=== PATIENT | male | born 1935 | race Caucasian/White ===

== ENCOUNTER → 2019-04-02 10:24 | Outpatient (BNVA) | payer MEDICARE, BC, SELFPAY | PROVIDERS: Family Provider Family Medicine; PCP Family Medicine; Visit Provider Internal Medicine Cardiovascular Disease | DX: I48.91 Unspecified atrial fibrillation (principal) | CPT/HCPCS: 85610 ==

== ENCOUNTER 2019-04-06 11:41 | Inpatient (IN) | payer MEDICARE, BC, SELFPAY ==
--- NOTE | 2019-04-06 11:42 | ED_ITS ---
Entered by Jose Maria Kenyon, acting as scribe for Jonnie Reilly DO HPI - Altered Mental Status General: Chief Complaint: Altered Mental Status Stated Complaint: CONFUSION Time Seen by Provider: 04/06/19 11:48 History of Present Illness: HPI narrative: 83 yo male presents with alerted mental status. Pt states that he has had a cough. Pt answers questions, but the answers are short. Pt doesn't know who his PCP is. He denies any chest pain he does have some mild shortness of breath cough. is with him states his mental status is always been a little bit compromise but is markedly worse over the last 3 to 4 days. She denies fever sweats or chills reported to her by him there is been no recent change in medications no dysuria urgency frequency no hematochezia melena hematemesis coffee-ground emesis. MD complaint: altered mental status Associated symptoms: Deny auditory hallucinations, visual hallucinations, depression, homicidal ideation or suicidal ideation Review of Systems Const: Reports: malaise; Denies: fever, chills, body aches, fatigue or night sweats Eyes: Denies: change in vision or blurry vision ENMT: Denies: throat pain, oral sores/lesions, dental pain, nasal discharge or nasal congestion Card: Denies: chest pain, palpitations, irregular heart rhythm, edema, syncope, shortness of breath on exertion, shortness of breath when lying down or leg pain with exertion Resp: Denies: shortness of breath, productive cough, non-productive cough or wheezing GI: Denies: abdominal pain, nausea, vomiting, vomiting blood, coffee grounds i n vomit, difficulty swallowing, heartburn/indigestion, diarrhea, constipation, cramping, blood in stool or black tarry stool : Denies: flank pain, difficulty urinating, painful urination, urinary frequency, urinary urgency, urinary incontinence or blood in urine Musc: Denies: neck pain, back pain, extremity pain, extremity swelling, joint pain or joint swelling Skin/Breast: Denies: rash, itching or redness Neuro: Reports: confusion; Denies: headache, numbness in extremities, weakness in extremities, changes in sensation, lack of coordination, difficulty walking, frequent falls, dizziness or vertigo Psych: Reports: loss of interest; Denies: anxiety, depression, visual hallucinations, auditory hallucinations, suicidal ideation or homicidal ideation Endo: Denies: excessive urination, excessive thirst, tired all the time or cold intolerance Daquan/Lymph: Denies: easy bruising, easy bleeding, petechiae, enlarged lymph nodes or tender lymph nodes PFSH ED PFSH: Statuses (acute, chronic, etc) shown below reflect problem list status as previously entered and may not be historically accurate Medical History Anemia (Acute) Atrial fibrillation (Acute) Chronic kidney disease (Acute) COPD (chronic obstructive pulmonary disease) (Acute) Coronary artery disease (Acute) Dementia (Acute) Diabetes mellitus type 2, insulin dependent (Acute) H/O coronary angiogram (Acute) Hyperlipidemia (Acute) Hypertension (Acute) Sick sinus syndrome (Acute) Surgical History H/O hemorrhoidectomy (Acute) History of permanent cardiac pacemaker placement (Acute) History of repair of hip fracture (Acute) Family History Mother CAD (coronary artery disease) Father CAD (coronary artery disease) Social History Smoking and tobacco status: former smoker Alcohol intake: never Substance/Drug Use: never Household members: spouse Physical Exam Const: COMMON NORMALS: average body habitus and alert EXAM LIMITATIONS: altered mental status GENERAL APPEARANCE: cooperative, comfortable and well developed NUTRITIONAL APPEARANCE: obese ORIENTATION/CONSCIOUSNESS: Yes awake; not oriented to person and not oriented to place HENMT: COMMON NORMALS: normocephalic, head/scalp atraumatic, EAC's normal, TM's normal bilaterally, external nose normal, moist oral mucous membranes and oropharynx normal HEAD & SCALP: normocephalic and atraumatic NOSE: external nose normal EXTERNAL AUDITORY CANAL: EAC's normal TYMPANIC MEMBRANE: TM's normal bilaterally MOUTH: oral and palatal mucosa normal, lip normal and tongue normal THROAT: posterior oropharynx normal and tonsils normal Eye: COMMON NORMALS: PERRL, EOMs intact bilaterally, conjunctivae normal and no scleral icterus CONJUNCTIVA: Yes conjunctivae normal PUPIL: Yes PERRL Neck/C-Spine: COMMON NORMALS: full ROM, no lymphadenopathy, supple, no meningeal signs and thyroid normal THYROID: thyroid normal and asymmetrical Lymph: LYMPHATIC: no lymphadenopathy noted Resp: COMMON NORMALS: no retractions and no use of accessory muscles AUSCULTATION: rhonchi throughout and wheezes throughout Cardio: COMMON NORMALS: regular rate and regular rhythm RATE: regular rate RHYTHM: regular rhythm HEART SOUNDS: no murmurs GI: COMMON NORMALS: normal to inspection, nondistended, normoactive bowel sounds, soft to palpation and no hepatosplenomegaly PALPATION: Yes soft and Yes no hepatosplenomegaly : COMMON NORMALS: Yes no CVA tenderness BLADDER/KIDNEY EXAM: Yes no CVA tenderness Back/Pelvis: COMMON NORMALS: no CVA tenderness LUMBAR SPINE/LOWER BACK: Yes normal to inspection Extremity: COMMON NORMALS: no clubbing, cyanosis or edema, no calf tenderness and no pedal edema Neuro: SENSORIUM/ORIENTATION: Yes alert, No oriented to person and No oriented to place MENINGEAL SIGNS: Yes no meningeal signs Skin: COMMON NORMALS: no rashes or lesions noted and skin turgor normal GENERAL SKIN EXAM: no rashes or lesions noted and turgor normal Course ED course: Discussed with Dr. Mcintyre she will admit the patient hypoxia acute on chronic renal injury. Mild dehydration COPD exacerbation altered mental status and anemia Vital Signs: Vital signs: Vital Signs Temperature 97.7 F 04/07/19 11:24 Pulse Rate 64 04/07/19 11:24 Respiratory Rate 18 04/07/19 11:24 Blood Pressure 119/64 04/07/19 11:24 Pulse Oximetry 100 04/07/19 11:24 MDM - Altered Mental Status Lab Data: Labs: Lab Results 04/06/19 04/06/19 04/06/19 Range/Units 11:58 11:58 11:58 WBC 7.6 (4.0-10.0) 10^3/ uL RBC 3.62 L (4.1-5.3) 10^6/u L Hgb 10.6 L (11.7-16.6) g/dL Hct 33.5 L (42.0-52.0) % MCV 92.5 (80-94) fL MCH 29.3 (28.0-34.0) pg MCHC 31.6 (30.0-36.0) g/dL RDW 14.0 (12.1-15.1) % Plt Count 159 (130-400) 10^3/c mm MPV 9.7 (7.4-10.4) fL Neut % (Auto) 78.2 % Lymph % (Auto) 11.2 % Sullivan % (Auto) 8.1 % Eos % (Auto) 1.4 % Baso % (Auto) 0.4 % Neut # (Auto) 6.0 (1.8-7.7) 10^3/u L Lymph # (Auto) 0.9 (0.8-4.8) 10^3/u L Sullivan # (Auto) 0.6 (0.2-0.9) 10^3/u L Eos # (Auto) 0.1 (0.0-0.8) 10^3/u L Baso # (Auto) 0.0 (0.0-0.1) 10^3/u L Nucleated RBC % (a uto) 0 % Nucleated RBCs # 0.0 /100WBC PT (10.5-13.3) SECO NDS INR (0.8-1.2) Specimen Type Sample Site ABG pH (7.35-7.45) ABG pCO2 (35-45) mmHg ABG pO2 (80.0-100.0) mmH g ABG HCO3 (22-26) mmol/L ABG Base Excess (-2.0-2.0) mmol/ L Eduardo Test Hematocrit (42-52) % Director Of Medicare ID Sodium 138 (136-145) mmol/L Potassium 4.7 (3.5-5.1) mmol/L Chloride 95 L (98-107) mmol/L Carbon Dioxide 32 H (22-29) mmol/L Anion Gap 15.7 (5-19) BUN 31 H (8-23) mg/dL Creatinine 2.0 H (0.7-1.2) mg/dL Glucose 173 H (74-106) mg/dL Estimat Average Gl ucose 166 Hemoglobin A1c 7.4 H (4.0-6.0) % Lactate (0.5-2.2) mmol/L Calcium 9.8 (8.8-10.2) mg/Dl Magnesium 2.3 (1.7-2.3) mg/dL Total Bilirubin 1.3 H (0.15-1.2) mg/dL AST 26 (0-40) U/L ALT 23 (0-41) U/L Alkaline Phosphata se 69 (40-130) IU/L Ammonia (16-60) umol/L Creatine Kinase 88 (39-308) U/L Troponin T Baselin e (0-15) ng/mL NT-Pro-B Natriuret Pep 4197 H (0-450) pg/mL Total Protein 7.4 (6.6-8.7) g/dL Albumin 4.0 (3.5-5.2) g/dL Globulin 3.4 (1.3-4.6) g/dL Lipase 11 L (13-60) U/L TSH 1.49 (0.27-4.20) uIU/ mL Digoxin (0.6-1.2) ng/mL Salicylates < 0.3 L (3-10) mg/dL Urine Opiates Scre en (Negative) ng/mL Acetaminophen < 5.0 L (10-30) ug/mL Ur Barbiturates Sc reen (Negative) ng/mL Ur Phencyclidine S crn (Negative) ng/mL Ur Amphetamines Sc reen (Negative) ng/mL U Benzodiazepines Scrn (Negative) ng/mL Urine Cocaine Scre en (Negative) ng/mL U Marijuana (THC) Screen (Negative) ng/mL 04/06/19 04/06/19 04/06/19 Range/Units 13:00 13:07 13:51 WBC (4.0-10.0) 10^3/ uL RBC (4.1-5.3) 10^6/u L Hgb (11.7-16.6) g/dL Hct (42.0-52.0) % MCV (80-94) fL MCH (28.0-34.0) pg MCHC (30.0-36.0) g/dL RDW (12.1-15.1) % Plt Count (130-400) 10^3/c mm MPV (7.4-10.4) fL Neut % (Auto) % Lymph % (Auto) % Sullivan % (Auto) % Eos % (Auto) % Baso % (Auto) % Neut # (Auto) (1.8-7.7) 10^3/u L Lymph # (Auto) (0.8-4.8) 10^3/u L Sullivan # (Auto) (0.2-0.9) 10^3/u L Eos # (Auto) (0.0-0.8) 10^3/u L Baso # (Auto) (0.0-0.1) 10^3/u L Nucleated RBC % (a uto) % Nucleated RBCs # /100WBC PT (10.5-13.3) SECO NDS INR (0.8-1.2) Specimen Type Arterial Sample Site Radial, left ABG pH 7.45 (7.35-7.45) ABG pCO2 45.4 H (35-45) mmHg ABG pO2 81.6 (80.0-100.0) mmH g ABG HCO3 31.6 H (22-26) mmol/L ABG Base Excess 6.7 H (-2.0-2.0) mmol/ L Eduardo Test Pos Hematocrit 32.3 L (42-52) % Director Of Medicare ID ed Sodium (136-145) mmol/L Potassium (3.5-5.1) mmol/L Chloride (98-107) mmol/L Carbon Dioxide (22-29) mmol/L Anion Gap (5-19) BUN (8-23) mg/dL Creatinine (0.7-1.2) mg/dL Glucose (74-106) mg/dL Estimat Average Gl ucose Hemoglobin A1c (4.0-6.0) % Lactate 1.6 (0.5-2.2) mmol/L Calcium (8.8-10.2) mg/Dl Magnesium (1.7-2.3) mg/dL Total Bilirubin (0.15-1.2) mg/dL AST (0-40) U/L ALT (0-41) U/L Alkaline Phosphata se (40-130) IU/L Ammonia (16-60) umol/L Creatine Kinase (39-308) U/L Troponin T Baselin e (0-15) ng/mL NT-Pro-B Natriuret Pep (0-450) pg/mL Total Protein (6.6-8.7) g/dL Albumin (3.5-5.2) g/dL Globulin (1.3-4.6) g/dL Lipase (13-60) U/L TSH (0.27-4.20) uIU/ mL Digoxin (0.6-1.2) ng/mL Salicylates (3-10) mg/dL Urine Opiates Scre en Negative (Negative) ng/mL Acetaminophen (10-30) ug/mL Ur Barbiturates Sc reen Negative (Negative) ng/mL Ur Phencyclidine S crn Negative (Negative) ng/mL Ur Amphetamines Sc reen Negative (Negative) ng/mL U Benzodiazepines Scrn Negative (Negative) ng/mL Urine Cocaine Scre en Negative (Negative) ng/mL U Marijuana (THC) Screen Negative (Negative) ng/mL 04/06/19 04/06/19 04/06/19 Range/Units 14:15 16:30 16:30 WBC (4.0-10.0) 10^3/ uL RBC (4.1-5.3) 10^6/u L Hgb (11.7-16.6) g/dL Hct (42.0-52.0) % MCV (80-94) fL MCH (28.0-34.0) pg MCHC (30.0-36.0) g/dL RDW (12.1-15.1) % Plt Count (130-400) 10^3/c mm MPV (7.4-10.4) fL Neut % (Auto) % Lymph % (Auto) % Sullivan % (Auto) % Eos % (Auto) % Baso % (Auto) % Neut # (Auto) (1.8-7.7) 10^3/u L Lymph # (Auto) (0.8-4.8) 10^3/u L Sullivan # (Auto) (0.2-0.9) 10^3/u L Eos # (Auto) (0.0-0.8) 10^3/u L Baso # (Auto) (0.0-0.1) 10^3/u L Nucleated RBC % (a uto) % Nucleated RBCs # /100WBC PT 20.10 H (10.5-13.3) SECO NDS INR 1.65 H (0.8-1.2) Specimen Type Sample Site ABG pH (7.35-7.45) ABG pCO2 (35-45) mmHg ABG pO2 (80.0-100.0) mmH g ABG HCO3 (22-26) mmol/L ABG Base Excess (-2.0-2.0) mmol/ L Eduardo Test Hematocrit (42-52) % Director Of Medicare ID Sodium (136-145) mmol/L Potassium (3.5-5.1) mmol/L Chloride (98-107) mmol/L Carbon Dioxide (22-29) mmol/L Anion Gap (5-19) BUN (8-23) mg/dL Creatinine (0.7-1.2) mg/dL Glucose (74-106) mg/dL Estimat Average Gl ucose Hemoglobin A1c (4.0-6.0) % Lactate (0.5-2.2) mmol/L Calcium (8.8-10.2) mg/Dl Magnesium (1.7-2.3) mg/dL Total Bilirubin (0.15-1.2) mg/dL AST (0-40) U/L ALT (0-41) U/L Alkaline Phosphata se (40-130) IU/L Ammonia 39 (16-60) umol/L Creatine Kinase (39-308) U/L Troponin T Baselin e (0-15) ng/mL NT-Pro-B Natriuret Pep (0-450) pg/mL Total Protein (6.6-8.7) g/dL Albumin (3.5-5.2) g/dL Globulin (1.3-4.6) g/dL Lipase (13-60) U/L TSH (0.27-4.20) uIU/ mL Digoxin 1.7 H (0.6-1.2) ng/mL Salicylates (3-10) mg/dL Urine Opiates Scre en (Negative) ng/mL Acetaminophen (10-30) ug/mL Ur Barbiturates Sc reen (Negative) ng/mL Ur Phencyclidine S crn (Negative) ng/mL Ur Amphetamines Sc reen (Negative) ng/mL U Benzodiazepines Scrn (Negative) ng/mL Urine Cocaine Scre en (Negative) ng/mL U Marijuana (THC) Screen (Negative) ng/mL 04/06/19 Range/Units 16:30 WBC (4.0-10.0) 10^3/ uL RBC (4.1-5.3) 10^6/u L Hgb (11.7-16.6) g/dL Hct (42.0-52.0) % MCV (80-94) fL MCH (28.0-34.0) pg MCHC (30.0-36.0) g/dL RDW (12.1-15.1) % Plt Count (130-400) 10^3/c mm MPV (7.4-10.4) fL Neut % (Auto) % Lymph % (Auto) % Sullivan % (Auto) % Eos % (Auto) % Baso % (Auto) % Neut # (Auto) (1.8-7.7) 10^3/u L Lymph # (Auto) (0.8-4.8) 10^3/u L Sullivan # (Auto) (0.2-0.9) 10^3/u L Eos # (Auto) (0.0-0.8) 10^3/u L Baso # (Auto) (0.0-0.1) 10^3/u L Nucleated RBC % (a uto) % Nucleated RBCs # /100WBC PT (10.5-13.3) SECO NDS INR (0.8-1.2) Specimen Type Sample Site ABG pH (7.35-7.45) ABG pCO2 (35-45) mmHg ABG pO2 (80.0-100.0) mmH g ABG HCO3 (22-26) mmol/L ABG Base Excess (-2.0-2.0) mmol/ L Eduardo Test Hematocrit (42-52) % Director Of Medicare ID Sodium (136-145) mmol/L Potassium (3.5-5.1) mmol/L Chloride (98-107) mmol/L Carbon Dioxide (22-29) mmol/L Anion Gap (5-19) BUN (8-23) mg/dL Creatinine (0.7-1.2) mg/dL Glucose (74-106) mg/dL Estimat Average Gl ucose Hemoglobin A1c (4.0-6.0) % Lactate (0.5-2.2) mmol/L Calcium (8.8-10.2) mg/Dl Magnesium (1.7-2.3) mg/dL Total Bilirubin (0.15-1.2) mg/dL AST (0-40) U/L ALT (0-41) U/L Alkaline Phosphata se (40-130) IU/L Ammonia (16-60) umol/L Creatine Kinase (39-308) U/L Troponin T Baselin e 86 H (0-15) ng/mL NT-Pro-B Natriuret Pep (0-450) pg/mL Total Protein (6.6-8.7) g/dL Albumin (3.5-5.2) g/dL Globulin (1.3-4.6) g/dL Lipase (13-60) U/L TSH (0.27-4.20) uIU/ mL Digoxin (0.6-1.2) ng/mL Salicylates (3-10) mg/dL Urine Opiates Scre en (Negative) ng/mL Acetaminophen (10-30) ug/mL Ur Barbiturates Sc reen (Negative) ng/mL Ur Phencyclidine S crn (Negative) ng/mL Ur Amphetamines Sc reen (Negative) ng/mL U Benzodiazepines Scrn (Negative) ng/mL Urine Cocaine Scre en (Negative) ng/mL U Marijuana (THC) Screen (Negative) ng/mL Imaging Data^: CT Head: Radiologist's impression: Patient: Ashwin Witt MR#: [id number] : 1935 Acct:[id number] Age/Sex: 83 / M ADM Date: 04/06/19 Loc: ER Attending Dr: Ordering Physician: Jonnie Reilly DO Date of Service: 04/06/19 Procedure(s): CT head wo con* [id number] Accession Number(s): [id number] Report Number: [id number] WS: [id number] CT scan of the head, 04/06/2019 Clinical Data: altered mental status Comparison: CT head, 03/14/2019. DLP: 1405.[address] scans at [facility] use at least one of these dose optimization techniques: automated exposure control; mA and/or kV adjustment per patient size (includes targeted exams where dose is matched to clinical indication); or iterative reconstruction. Findings: The ventricular system is severely without shift. No recent infarct or hemorrhage is seen. There are no abnormal intracerebral masses. The cerebellum and brainstem are not remarkable. Bony windows of the skull and skull base show no fractures or erosions. The mastoid air cells, internal auditory canals, sella turcica, intraorbital contents, and paranasal sinuses are unremarkable. CT/CT head wo con* [id number] Impression: Severe cerebral atrophy unchanged. Dictated By: Leonora Moore MD Signed By: Leonora Moore MD Signed Date/Time:04/06/19 1341 CXR: Radiologist's impression: Patient: Ashwin Witt MR#: [id number] : 1935 Acct:[id number] Age/Sex: 83 / M ADM Date: 04/06/19 Loc: ER Attending Dr: Ordering Physician: Jonnie Reilly DO Date of Service: 04/06/19 Procedure(s): XR chest 1V portable [id number] Accession Number(s): [id number] Report Number: [id number] WS: [id number] Portable AP upright chest, 04/06/2019 Clinical Data: cough Comparison: Portable chest, 03/14/2019. Findings: No nodules, masses or effusions are seen. The heart is at the upper limits of normal. The aortic arch and descending aorta show minimal tortuosity. The permanent pacemaker remains unchanged in position. No pneumonia or pneumothorax is seen. XR/XR chest 1V portable [id number] Impression: Atherosclerosis and prominent pacemaker. Dictated By: Leonora Moore MD Signed By: Leonora Moore MD Signed Date/Time:04/06/19 1319 Discharge Plan Discharge Patient Disposition: Admitted As Inpatient Admit Provider: Nikki Mcintyre Clinical Impression: Chronic kidney disease, Atrial fibrillation, Coronary artery disease, Congestive heart failure, COPD (chronic obstructive pulmonary disease), Anemia, Altered mental status Condition: Stable Interventions: ED Discharge Assessment Last Done: 04/06/19 17:51 Discharge Date/Time: 04/06/19 18:07 Coding Level of Care Code ED Mule Driver for Chg Fwd Exam Problem Focused The documentation recorded by the Kostas ivory Kialy, accurately reflects the service I personally performed and the decisions made by me, Jonnie Reilly DO Apr 06, 2019 11:41
[2019-04-06 11:43] VITALS: BP 198/94; PULSE 80; RESP 20; TEMP 37.2; O2SAT 93; BMI 30.4
--- NOTE | 2019-04-06 12:43 | XR_ITS ---
WS: [id number] Portable AP upright chest, 04/06/2019 Clinical Data: cough Comparison: Portable chest, 03/14/2019. Findings: No nodules, masses or effusions are seen. The heart is at the upper limits of normal. The a ortic arch and descending aorta show minimal tortuosity. The permanent pacemaker remains unchanged in position. No pneumonia or pneumothorax is seen. XR/XR chest 1V portable [id number] Impression: Atherosclerosis and prominent pacemaker.
--- NOTE | 2019-04-06 12:43 | CT_ITS ---
WS: [id number] CT scan of the head, 04/06/2019 Clinical Data: altered mental status Comparison: CT head, 03/14/2019. DLP: 1405.[address] scans at [facility] use at least one of these dose optimization techniques: automat ed exposure control; mA and/or kV adjustment per patient size (includes targeted exams where dose is matched to clinical indication); or iterative reconstruction. Findings: The ventricular system is severely without shift. No recent infarct or hemorrhage is seen. There are no abnormal intracerebral masses. The cerebellum and brainstem are not remarkable. Bony windows of the skull and skull base show no fractures or erosions. The mastoid air cells, international operations manager al auditory canals, sella turcica, intraorbital contents, and paranasal sinuses are unremarkable. CT/CT head wo con* [id number] Impression: Severe cerebral atrophy unchanged.
[2019-04-06 12:56] LABS: Basophils % 0.4 %; Eosinophils # 0.1 10^3/uL (0.0-0.8); Eosinophils % 1.4 %; Hematocrit 33.5 % (42.0-52.0); Hemoglobin 10.6 g/dL (11.7-16.6); Lymphocytes # 0.9 10^3/uL (0.8-4.8); Lymphocytes % 11.2 %; Mean Corpuscular HGB Conc 31.6 g/dL (30.0-36.0); Mean Corpuscular Hemoglobin 29.3 pg (28.0-34.0); Mean Corpuscular Volume 92.5 fL (80-94); Mean Platelet Volume 9.7 fL (7.4-10.4); Monocytes # 0.6 10^3/uL (0.2-0.9); Monocytes % 8.1 %; Neutrophils % 78.2 %; Nucleated Red Blood Cells % 0 %; Platelet Count 159 10^3/cmm (130-400); Red Blood Count 3.62 10^6/uL (4.1-5.3); White Blood Count 7.6 10^3/uL (4.0-10.0)
[2019-04-06 13:08] LABS: ABG PCO2 45.4 mmHg (35-45); ABG PH Result 7.45 (7.35-7.45); Arterial Blood Gas Hematocrit 32.3 % (42-52); Base Excess ABG 6.7 mmol/L (-2.0-2.0); Blood Gas Allen Test Pos; Blood Gas Sample Site Radial, left; Blood Gas Sample Type Arterial; HCO3 ABG 31.6 mmol/L (22-26); PO2 ABG 81.6 mmHg (80.0-100.0)
[2019-04-06 13:23] LABS: Alanine Aminotransferase 23 U/L (0-41); Alkaline Phosphatase 69 IU/L (40-130); Anion Gap 15.7 (5-19); Aspartate Amino Transferase 26 U/L (0-40); Blood Urea Nitrogen 31 mg/dL (8-23); Calcium 9.8 mg/Dl (8.8-10.2); Carbon Dioxide 32 mmol/L (22-29); Chloride 95 mmol/L (98-107); Creatine Phosphokinase 88 U/L (39-308); Globulin 3.4 g/dL (1.3-4.6); Glucose 173 mg/dL (74-106); Lipase 11 U/L (13-60); Magnesium 2.3 mg/dL (1.7-2.3); NT Pro B Type Natriuretic Pept 4197 pg/mL (0-450); Potassium 4.7 mmol/L (3.5-5.1); Sodium 138 mmol/L (136-145); Thyroid Stimulating Hormone 1.49 uIU/mL (0.27-4.20); Total Bilirubin 1.3 mg/dL (0.15-1.2); Total Protein 7.4 g/dL (6.6-8.7)
[2019-04-06 13:24] LABS: Acetaminophen < 5.0 ug/mL (10-30); Salicylate < 0.3 mg/dL (3-10)
[2019-04-06 13:35] LABS: Lactate (Lactic Acid level) 1.6 mmol/L (0.5-2.2)
[2019-04-06 14:27] LABS: Amphetamines Screen Urine Negative (Negative); Barbiturates Screen Urine Negative (Negative); Benzodiazepines Screen Urine Negative (Negative); Cocaine Screen Urine Negative (Negative); Opiate Screen Urine Negative (Negative); PCP Screen Urine Negative (Negative); THC Screen Urine Negative (Negative)
[2019-04-06] MEDS: FUROsemide 10 mg/mL SDV 4mL 40 MG IVP (14:35)
[2019-04-06 14:37] LABS: Ammonia 39 umol/L (16-60)
--- NOTE | 2019-04-06 16:11 | ECG_ITS ---
Measurements Intervals [place] Rate: 65 P: DC: 0 QRS: 162 QRSD: 169 T: -17 QT: 421 QTc: 441 ELECTRONIC VENTRICULAR PACEMAKER ABNORMAL RHYTHM ECG Compared to ECG 03/14/2019 11:47:43 No significant changes Electronically Signed On 04-06-2019 17:49:25 PIZZAMAKER by Ekta Fernandes M.D. [email or web address]
[2019-04-06 16:52] LABS: INR 1.65 (0.8-1.2)
[2019-04-06 16:54] LABS: Troponin(5th) Baseline 86 ng/mL (0-15)
[2019-04-06 16:56] VITALS: BP 196/88; PULSE 66; RESP 18; TEMP 36.9; O2SAT 92
--- NOTE | 2019-04-06 17:04 | USCV_ITS ---
Ashwin Witt Age: 83 Gender: M : 1935 Exam Date: 04/06/2019 17:28 Ordering Phys: Nikki Mcintyre DO Technologist: Mary Gold Exam Location: [facility] Indication: chf, fluid overload BP: / HR: 77 Rhythm: Sinus Technical Quality: Adequate MEASUREMENTS (Male / Female) Normal Values 2D ECHO LV Diastolic Diameter PLAX 3.2 cm 4.2 - 5.9 / 3.9 - 5.3 cm LV Systolic Diameter PLAX 2.1 cm LV Chamber Size 2.6 cm IVS Diastolic Thickness 1.5 cm 0.6 - 1.0 / 0.6 - 0.9 cm IVS Systolic Thickness 1.3 cm LVPW Diastolic Thickness 1.8 cm 0.6 - 1.0 / 0.6 - 0.9 cm LVPW Systolic Thickness 2.1 cm RV Chamber Size 3.1 cm LVOT Diameter 2.0 cm LV Ejection Fraction 2D Teich 67.1 % LA Diameter 4.9 cm LA Width 3.5 cm LA Height 4.8 cm RA Width 4.2 cm RA Height 3.8 cm Aorta at Sinotubular Diameter 2.9 cm M-MODE LV Diastolic Diameter MM 5.5 cm 4.2 - 5.9 / 3.9 - 5.3 cm LV Systolic Diameter MM 3.0 cm LV Ejection Fraction MM Teich 76.0 % IVS Diastolic Thickness MM 0.9 cm 0.6 - 1.0 / 0.6 - 0.9 cm IVS Systolic Thickness MM 1.5 cm LVPW Diastolic Thickness MM 1.0 cm 0.6 - 1.0 / 0.6 - 0.9 cm LVPW Systolic Thickness MM 1.9 cm Aortic Annulus Diameter 3.0 cm LA Ao Ratio MM 1.6 MV E Point Septal Separation 0.3 cm DOPPLER AV Peak Velocity 142.0 cm/s LVOT Peak Velocity 90.0 cm/s AV Area Cont Eq vti 2.2 cm squared AV Area Cont Eq pk 2.1 cm squared MV Area PHT 6.5 cm squared Mitral E to A Ratio 4.5 MV E' Velocity 16.0 cm/s Mitral E to MV E' Ratio 9.6 Mitral E to LV E' Lateral Ratio 8.2 Mitral E to LV E' Septal Ratio 11.5 TR Peak Velocity 301.0 cm/s TR Peak Gradient 36.2 mmHg TR Mean Velocity 282.8 cm/s TR Mean Gradient 37.2 mmHg TR Velocity Time Integral 121.4 cm TV Peak E Velocity 74.0 cm/s Right Atrial Pressure 3.0 mmHg Pulmonary Artery Systolic Pressu 39.2 mmHg PV Peak Velocity 62.0 cm/s RV Acceleration Time 0.1 s RV Ejection Time 0.3 s RV AcT/ET 0.4 FINDINGS Left Ventricle Normal left ventricular cavity size. Normal left ventricular systolic function. No regional wall motion abnormalities. Left ventricular ejection fraction is estimated at 60 %. No regional wall motion abnormalities. In the presence of atrial fibrillation diastolic function cannot be assessed accurately. Right Ventricle Normal right ventricular size. Catheter/pacemaker wire visualized in the right ventricle. Mild pulmonary hypertension, RVSP 39.2 mmHg. Right Atrium Normal right atrial size. Catheter/pacemaker wire in the right atrial cavity. Left Atrium Moderately increased left atrial size. Mitral Valve Moderately thickened mitral valve. Moderate mitral annular calcification. No mitral valve stenosis. Mild mitral valve regurgitation. Aortic Valve Aortic valve sclerosis without stenosis or regurgitation. Tricuspid Valve Ahif-ta-thndffxi tricuspid valve regurgitation. Pulmonic Valve Structurally normal pulmonic valve without significant stenosis. There is no pulmonic regurgitation. Pericardium Normal pericardium without effusion. Aorta Normal ascending aorta dimension. CONCLUSIONS 1-Normal left ventricular cavity size. Normal left ventricular systolic function. No regional wall motion abnormalities. Left ventricular ejection fraction is estimated at 60 %. No regional wall motion abnormalities. In the presence of atrial fibrillation diastolic function cannot be assessed accurately. 2-Normal right ventricular size. Catheter/pacemaker wire visualized in the right ventricle. 3-Normal right atrial size. Catheter/pacemaker wire in the right atrial cavity. 4-Moderately increased left atrial size. 5-Moderately thickened mitral valve. Moderate mitral annular calcification. No mitral valve stenosis. Mild mitral valve regurgitation. 6-Aortic valve sclerosis without stenosis or regurgitation. 1-Ozuj-aa-moderate tricuspid valve regurgitation. 8-There is no pericardial effusion. 9-Mild pulmonary hypertension, RVSP 39.2 mmHg. 10-No significant change since the prior echocardiogram study of 08/18/2018. Cayetano Strickland MD (Electronically Signed) Final Date: 06 April 2019 18:09 S
--- NOTE | 2019-04-06 17:09 | PM.HP ---
Providers/Chief Complaint Primary Care Provider: Michael Soliman MD Chief Complaint: CONFUSION History of Present Illness Ashwin Witt is a 83 year old male that presented to the emergency department due to concern for weakness and altered mental status. Family noted that he has been having altered mental status ongoing for the past several weeks to months, has progressive dementia. Family reported that patient has had dry cough since of last week. This morning he continued to scoot himself to the edge of the bed until he scooted himself out of bed and was so weak that he was unable to get from the floor back up to bed. is at bedside and information was obtained mostly from her and she reported that patient did not have any loss of consciousness, no head trauma. reported that only recent medication changes was an adjustment to his Coumadin due to supratherapeutic INR and also changed to Coreg by Dr. Abernathy. She reported that he is on Lasix at home and this morning his blood pressure was 196/93 before taking his home medications. She stated that he has not had any recent fever, she was sick last week with upper respiratory infection and sinus congestion, no other sick contacts. Review of Systems Const: Denies: fever or chills Eyes: Denies: change in vision ENMT: Denies: nasal congestion Card: Reports: edema; Denies: chest pain or palpitations Resp: Reports: non-productive cough; Denies: shortness of breath, productive cough or coughing up blood GI: Reports: black tarry stool; Denies: abdominal pain, nausea, vomiting, diarrhea or constipation : Denies: painful urination or blood in urine Musc: Denies: extremity pain or muscle cramps Skin/Breast: Denies: rash or new lesion Neuro: Reports: confusion; Denies: headache or dizziness Psych: Reports: memory loss Endo: Denies: excessive urination Daquan/Lymph: Denies: easy bruising or easy bleeding Medications/Allergies Home Medications Medication Instructions Recorded Confirmed Last Taken Type Flomax 0.4 mg PO DAILY 04/06/19 04/06/19 04/05/19 History carvedilol 25 mg PO BID 04/06/19 04/06/19 04/05/19 History digoxin 125 mcg PO DAILY 04/06/19 04/06/19 04/05/19 History famotidine 10 mg PO BID 04/06/19 04/06/19 04/05/19 History febuxostat [Uloric] 40 mg PO DAILY 04/06/19 04/06/19 04/05/19 History furosemide [Lasix] See Rx Instructions .ROUTE .COMPLEX 04/06/19 04/06/19 04/05/19 History insulin aspart U-100 [Novolog See Rx Instructions .ROUTE .COMPLEX 04/06/19 04/06/19 Unknown History PenFill U-100 Insulin] insulin detemir U-100 [Levemir See Rx Instructions .ROUTE .COMPLEX 04/06/19 04/06/19 04/05/19 History FlexTouch U-100 Insuln] metformin 1,000 mg PO DAILY 04/06/19 04/06/19 04/05/19 History multivitamin [Multiple Vitamins] 1 tab PO DAILY 04/06/19 04/06/19 04/05/19 History nitroglycerin [Nitrostat] 0.4 mg SUBLINGUAL Q5M PRN 04/06/19 04/06/19 Unknown History trandolapril 4 mg PO DAILY 04/06/19 04/06/19 04/05/19 History trazodone 50 mg PO BEDTIME 04/06/19 04/06/19 04/05/19 History Allergies Allergy/AdvReac Type Severity Reaction Status Date / Time No Known Allergies Allergy Verified 04/06/19 11:52 PFSH Acute PFSH: Statuses (acute, chronic, etc) shown below reflect problem list status as previously entered and may not be historically accurate Medical History (Updated 04/06/19 @ 17:38 by Nikki Mcintyre DO) Anemia (Acute) Atrial fibrillation (Acute) Chronic kidney disease (Acute) COPD (chronic obstructive pulmonary disease) (Acute) Coronary artery disease (Acute) Dementia (Acute) Diabetes mellitus type 2, insulin dependent (Acute) H/O coronary angiogram (Acute) Hyperlipidemia (Acute) Hypertension (Acute) Sick sinus syndrome (Acute) Surgical History (Updated 04/06/19 @ 17:38 by Nikki Mcintyre DO) H/O hemorrhoidectomy (Acute) History of permanent cardiac pacemaker placement (Acute) History of repair of hip fracture (Acute) Family History (Updated 04/06/19 @ 17:38 by Nikki Mcintyre DO) Mother CAD (coronary artery disease) Father CAD (coronary artery disease) Social History (Updated 04/06/19 @ 17:39 by Nikki Mcintyre DO) Smoking and tobacco status: former smoker Alcohol intake: never Substance/Drug Use: never Household members: spouse Vitals/I&O/Wt Last Vital Signs Temp 99.0 F 04/06/19 11:43 Pulse 80 04/06/19 11:43 Resp 20 H 04/06/19 11:43 BP 198/94 04/06/19 11:43 Pulse Ox 93 04/06/19 11:43 Weight last 48 hrs Weight 90.718 kg Physical Exam Const: COMMON NORMALS: alert GENERAL APPEARANCE: cooperative ORIENTATION/CONSCIOUSNESS: Yes awake, Yes oriented to person and Yes confused; not oriented to place and not oriented to time HENMT: COMMON NORMALS: normocephalic and head/scalp atraumatic HEAD & SCALP: normocephalic and atraumatic Eye: COMMON NORMALS: PERRL PUPIL: Yes PERRL Neck/C-Spine: COMMON NORMALS: supple GENERAL: Yes normal visual inspection Resp: COMMON NORMALS: normal respiratory effort and clear to auscultation bilaterally EFFORT & INSPECTION: Yes able to speak in complete sentences AUSCULTATION: crackles, no rhonchi and no wheezes Cardio: COMMON NORMALS: regular rate and regular rhythm RATE: regular rate RHYTHM: regular rhythm GI: COMMON NORMALS: soft to palpation and non-tender INSPECTION: No abdominal distension AUSCULTATION: Yes normoactive bowel sounds PALPATION: Yes soft : COMMON NORMALS: Yes no CVA tenderness BLADDER/KIDNEY EXAM: Yes no CVA tenderness Back/Pelvis: COMMON NORMALS: no CVA tenderness Extremity: COMMON NORMALS: no calf tenderness GENERAL: Yes edema Neuro: COMMON NORMALS: CN's II-XII intact bilaterally, moves all extremities and no focal motor deficits SENSORIUM/ORIENTATION: Yes alert, Yes oriented to person, No oriented to place and No oriented to time SPEECH: speech normal Psych: COMMON NORMALS: mental status grossly normal and cooperative Skin: COMMON NORMALS: no rashes or lesions noted GENERAL SKIN EXAM: no rashes or lesions noted A&P Assessment and plan (1) Atrial fibrillation: Status post pacemaker placement Continue on home Coreg 25 mg twice daily Digoxin 125 mcg daily Continue on home Coumadin, INR pending Status: Acute Code(s): I48.91 - Unspecified atrial fibrillation (2) Congestive heart failure: With acute exacerbation, likely diastolic Repeat echocardiogram ordered and pending Continue with IV Lasix every 12 hours 40 mg Strict I's and O's and daily weights Status: Acute Code(s): I50.9 - Heart failure, unspecified (3) Coronary artery disease: Continue home Coreg, not on statin or aspirin Status: Acute Code(s): I25.10 - Atherosclerotic heart disease of [place] coronary artery without angina pectoris (4) Chronic kidney disease: Creatinine and BUN appears to be at baseline, will continue to monitor strict I's and O's and monitor daily due to his diuresis that is ordered Status: Acute Code(s): N18.9 - Chronic kidney disease, unspecified (5) Hypertension: Continue home Coreg and digoxin and also continue home Lasix 6 Status: Acute Code(s): I10 - Essential (primary) hypertension (6) Hyperlipidemia: No longer on statin medication Status: Acute Code(s): E78.5 - Hyperlipidemia, unspecified (7) Dementia: at bedside, Denice, reports that patient has had increased confusion over the past several months, likely progression of dementia. CT scan of the head performed in the ER shows severe atrophy, no acute changes Status: Acute Code(s): F03.90 - Unspecified dementia without behavioral disturbance (8) COPD (chronic obstructive pulmonary disease): Without acute exacerbation, oxygen per protocol Status: Acute Code(s): J44.9 - Chronic obstructive pulmonary disease, unspecified (9) Diabetes mellitus type 2, insulin dependent: Continue with sliding scale insulin, will check A1c. Will decrease insulin dosing due to patient being in the hospital Status: Acute Code(s): E11.9 - Type 2 diabetes mellitus without complications; Z79.4 - termite control servicer (current) use of insulin (10) Anemia: Anemia appears to be at baseline, no evidence of any acute bleeding Status: Acute Code(s): D64.9 - Anemia, unspecified Attestations Medical Necessity Statement*: Patient requires hospitalization due to acute CHF exacerbation, expected stay greater than 2 midnights due to other comorbidities with atrial fibrillation, sick sinus syndrome status post pacemaker placement, diabetes mellitus, insulin-dependent and generalized deconditioning Coding Level of Care Code Acute Sand System Operator for g Fwd Diagnoses Atrial fibrillation I48.91 Congestive heart failure I50.9 Coronary artery disease I25.10 Chronic kidney disease N18.9 Hypertension I10 Hyperlipidemia E78.5 Dementia F03.90 COPD (chronic obstructive pulmonary disease) J44.9 Diabetes mellitus type 2, insulin dependent E11.9; Z79.4 Anemia D64.9
[2019-04-06 17:13] LABS: Digoxin 1.7 ng/mL (0.6-1.2)
[2019-04-06 17:51] VITALS: BP 135/82; PULSE 93; RESP 16; O2SAT 94
--- NOTE | 2019-04-06 18:11 | ECG_ITS ---
Measurements Intervals [place] Rate: 70 P: [place]: 0 QRS: -81 QRSD: 168 T: 93 QT: 413 QTc: 446 ELECTRONIC VENTRICULAR PACEMAKER ABNORMAL RHYTHM ECG Compared to ECG 04/06/2019 16:58:12 No significant changes Electronically Signed On 04-06-2019 20:46:31 CONDUIT REAMER OPERATOR by Ekta Fernandes M.D. [id number]
[2019-04-06] MEDS: hyDRALAzine 20 mg/mL INJ 1 mL IVP (18:45)
[2019-04-06 18:50] VITALS: BP 228/97; PULSE 88; RESP 20; TEMP 36.7; O2SAT 87
[2019-04-06 20:00] VITALS: BP 150/86; PULSE 76; RESP 20; RESP 40; TEMP 36.7; TEMP 38.2; O2SAT 94
[2019-04-06 20:30] LABS: Glucose Point of Care 191 mg/dL (70-110)
[2019-04-06] MEDS: warfarin 2 mg Tablet PO (20:54)
[2019-04-06] MEDS: trazodone 50 mg Tablet PO (20:54)
[2019-04-06] MEDS: carvedilol 25 mg Tablet PO (20:54)
[2019-04-06] MEDS: famotidine 20 mg Tablet 10 MG PO (20:55)
[2019-04-06] MEDS: docusate sodium 100 mg Capsule PO (20:55)
[2019-04-06 21:02] LABS: Estmated Average Glucose 166; Hemoglobin A1C 7.4 % (4.0-6.0)
[2019-04-06 21:36] LABS: Thyroid Stimulating Hormone 1.11 uIU/mL (0.27-4.20)
--- NOTE | 2019-04-06 22:11 | ECG_ITS ---
Measurements Intervals [place] Rate: 60 P: [place]: 0 QRS: -79 QRSD: 162 T: 90 QT: 447 QTc: 447 ELECTRONIC VENTRICULAR PACEMAKER ABNORMAL RHYTHM ECG Compared to ECG 04/06/2019 18:13:01 No significant changes Electronically Signed On 04-07-2019 19:22:42 GLOBAL ANALYTICS HEAD by Cayetano Strickland M.D. [email or web address]
[2019-04-06 22:31] VITALS: PULSE 66; O2SAT 94
[2019-04-06 22:41] LABS: Troponin 5 6HR 88.36 ng/L (0-15)
[2019-04-06 23:35] LABS: Troponin 5 6HR Delta 2.36 ng/L (0-12)
[2019-04-07] VITALS (7 sets, daily range): BP systolic 92–137; BP diastolic 49–76; PULSE 60–67; RESP 17–26; TEMP 36.5–37.1; O2SAT 92–100
[2019-04-07 00:35] LABS: Troponin 5 2HR 78.52 ng/mL (0-15)
[2019-04-07 00:52] LABS: Troponin 5 2HR Delta 7.48 ABS# (0-10)
[2019-04-07 02:30] LABS: Add Urine Microscopic? NO
[2019-04-07 02:33] LABS: Urine Appearance Clear (CLEAR); Urine Color Yellow (Yellow)
[2019-04-07 02:34] LABS: Bilirubin Urine Neg (NEGATIVE); Blood Urine Neg (Negative); Glucose Urine UA Norm (Normal); Ketones Urine Negative (Negative); Leukocyte Esterase Urine Negative (Negative); Nitrate Urine Negative (Negative); Protein Urine Neg (Negative); Urobilinogen Urine 1 mg/dL (Negative); pH Urine 5 (5-7)
[2019-04-07 05:57] LABS: Basophils % 0.2 %; Eosinophils % 0.2 %; Hematocrit 27.5 % (42.0-52.0); Hemoglobin 8.8 g/dL (11.7-16.6); Lymphocytes % 16.2 %; Mean Corpuscular Hemoglobin 29.3 pg (28.0-34.0); Mean Corpuscular Volume 91.7 fL (80-94); Mean Platelet Volume 9.5 fL (7.4-10.4); Monocytes # 0.5 10^3/uL (0.2-0.9); Monocytes % 8.3 %; Neutrophils # 4.7 10^3/uL (1.8-7.7); Neutrophils % 74.8 %; Nucleated Red Blood Cells % 0 %; Platelet Count 120 10^3/cmm (130-400); White Blood Count 6.3 10^3/uL (4.0-10.0)
[2019-04-07 06:07] LABS: Anion Gap 15.3 (5-19); Blood Urea Nitrogen 39 mg/dL (8-23); Calcium 9.4 mg/Dl (8.8-10.2); Carbon Dioxide 29 mmol/L (22-29); Chloride 97 mmol/L (98-107); Glucose 208 mg/dL (74-106); Potassium 4.3 mmol/L (3.5-5.1); Sodium 137 mmol/L (136-145)
[2019-04-07 06:26] LABS: Glucose Point of Care 203 mg/dL (70-110)
[2019-04-07 06:32] LABS: INR 1.61 (0.8-1.2)
--- NOTE | 2019-04-07 07:52 | XR_ITS ---
WS: [id number] Chest AP view, 04/07/2019 Clinical Data: hypoxia Comparison: Portable chest, 04/06/2019 Findings: No nodules, masses or effusions are seen. The heart is normal. The pulmonary vascularity is not increased. No pneumonia or pneumothorax is seen. The aortic arch and descending aorta show mild tortuosity. A cardiac pacemaker remains in position. XR/XR chest 2V* [id number] Impression: No change in atherosclerosis and pacemaker.
[2019-04-07 09:20] LABS: Glucose Point of Care 219 mg/dL (70-110)
[2019-04-07] MEDS: famotidine 20 mg Tablet 10 MG PO ×2 (09:39→18:24)
[2019-04-07] MEDS: FUROsemide 10 mg/mL SDV 4mL 40 MG IVP (09:40)
[2019-04-07] MEDS: docusate sodium 100 mg Capsule PO ×2 (09:41→18:24)
[2019-04-07] MEDS: lisinopril 20 mg Tablet 40 MG PO (09:41)
[2019-04-07] MEDS: tamsulosin 0.4 mg Capsule PO (09:41)
[2019-04-07] MEDS: carvedilol 25 mg Tablet PO (09:41)
--- NOTE | 2019-04-07 11:10 | XR_ITS ---
WS: [id number] ABDOMEN 1 VIEW(S) HISTORY: abdominal pain COMPARISON: 01/03/2010 Mild distention of the colon with air. No suspicious masses or calcifications. No soft tissue abnormalities. Prior fixation RIGHT hip. Moderate degenerative changes at the LEFT hip joint. XR/XR KUB portable [id number] IMPRESSION: Mild air distention of the colon. No acute abnormalities.
[2019-04-07 11:12] LABS: Basophils % 0.3 %; Eosinophils # 0.1 10^3/uL (0.0-0.8); Eosinophils % 0.6 %; Hematocrit 31.5 % (42.0-52.0); Hemoglobin 9.9 g/dL (11.7-16.6); Lymphocytes % 13.3 %; Mean Corpuscular HGB Conc 31.4 g/dL (30.0-36.0); Mean Corpuscular Hemoglobin 30.7 pg (28.0-34.0); Mean Corpuscular Volume 97.5 fL (80-94); Mean Platelet Volume 9.5 fL (7.4-10.4); Monocytes # 0.6 10^3/uL (0.2-0.9); Monocytes % 7.8 %; Neutrophils # 6.1 10^3/uL (1.8-7.7); Neutrophils % 77.7 %; Nucleated Red Blood Cells % 0 %; Platelet Count 120 10^3/cmm (130-400); Red Blood Count 3.23 10^6/uL (4.1-5.3); Red Cell Distribution Width 14.1 % (12.1-15.1); White Blood Count 7.8 10^3/uL (4.0-10.0)
--- NOTE | 2019-04-07 11:13 | PM.PN ---
Subjective Subjective: Interval history: Patient awake sitting up in bed at time of exam this morning. , Denice, at bedside. Patient denies any chest pain or shortness of breath today. Reports continued nonproductive cough. He reported some abdominal pain that is located in the epigastric region, no radiation, occasional nausea, none currently, no vomiting. Vitals/I&O/Wt Last Vital Signs Temp 98.2 F 04/07/19 07:28 Pulse 63 04/07/19 07:28 Resp 18 04/07/19 07:28 BP 124/68 04/07/19 07:28 Pulse Ox 98 04/07/19 07:28 04/06/19 04/07/19 04/07/19 22:59 06:59 14:59 Intake Total 120 / 120 480 / 480 Output Total 100 / 100 100 / 200 Balance -100 / -80 480 / 480 Weight last 48 hrs Weight 90.718 kg Physical Exam Const: COMMON NORMALS: alert GENERAL APPEARANCE: cooperative ORIENTATION/CONSCIOUSNESS: Yes awake, Yes oriented to person and Yes confused; not oriented to place HENMT: COMMON NORMALS: normocephalic and head/scalp atraumatic HEAD & SCALP: normocephalic and atraumatic Eye: COMMON NORMALS: PERRL PUPIL: Yes PERRL Neck/C-Spine: COMMON NORMALS: supple GENERAL: Yes normal visual inspection Resp: AUSCULTATION: no rhonchi, no wheezes and diminished lung sounds OTHER: Upper airway noise Cardio: OTHER: Paced rhythm, systolic murmur GI: INSPECTION: Yes abdominal distension OTHER: Obese, soft, umbilical hernia that is easily reducible, epigastric tenderness to palpation without any guarding or rigidity Extremity: COMMON NORMALS: no calf tenderness GENERAL: Yes edema Neuro: COMMON NORMALS: CN's II-XII intact bilaterally, moves all extremities and no focal motor deficits SENSORIUM/ORIENTATION: Yes alert, Yes oriented to person and No oriented to place SPEECH: speech normal Psych: COMMON NORMALS: mental status grossly normal and cooperative Skin: COMMON NORMALS: no rashes or lesions noted GENERAL SKIN EXAM: no rashes or lesions noted A&P Assessment and plan (1) Atrial fibrillation: Status post pacemaker placement Continue on home Coreg 25 mg twice daily Digoxin 125 mcg daily Continue on home Coumadin, INR daily with pharmacy to adjust dosing to goal INR of 2-[address] Abernathy Status: Acute Code(s): I48.91 - Unspecified atrial fibrillation (2) Congestive heart failure: With acute exacerbation, likely diastolic Repeat echocardiogram showing no change from 5?2018 Continue with IV Lasix every 12 hours 40 mg Strict I's and O's and daily weights Continue to monitor renal function closely with continued diuresis Status: Acute Code(s): I50.9 - Heart failure, unspecified (3) Coronary artery disease: Continue home Coreg, not on statin or aspirin Status: Acute Code(s): I25.10 - Atherosclerotic heart disease of [place] coronary artery without angina pectoris (4) Chronic kidney disease: Slight worsening of BUN and creatinine today with diuresis, will continue to monitor intake and output closely and monitor renal function closely. Status: Acute Code(s): N18.9 - Chronic kidney disease, unspecified (5) Hypertension: Continue home Coreg and Lasix as above Status: Acute Code(s): I10 - Essential (primary) hypertension (6) Hyperlipidemia: No longer on statin medication Status: Acute Code(s): E78.5 - Hyperlipidemia, unspecified (7) Dementia: at bedside, Denice, reports that patient has had increased confusion over the past several months, likely progression of dementia. CT scan of the head performed in the ER shows severe atrophy, no acute changes Status: Acute Code(s): F03.90 - Unspecified dementia without behavioral disturbance (8) COPD (chronic obstructive pulmonary disease): Without acute exacerbation, oxygen per protocol Status: Acute Code(s): J44.9 - Chronic obstructive pulmonary disease, unspecified (9) Diabetes mellitus type 2, insulin dependent: Home insulin decreased due to patient being in the hospital. Continue on Levemir at 30 units twice daily, decreased from home requirement of 54 units twice daily. Continue on sliding scale insulin as needed. Status: Acute Code(s): E11.9 - Type 2 diabetes mellitus without complications; Z79.4 - long term acute care registered nurse (current) use of insulin (10) Anemia: Decrease in hemoglobin today and patient reporting some epigastric discomfort. Will further evaluate with portable KUB. Started on Protonix and will continue to monitor closely, fecal occult blood test ordered. Patient denies any melanotic stools at home but will continue close monitoring due to patient being on chronic anticoagulation with Coumadin due to his atrial fibrillation Status: Acute Code(s): D64.9 - Anemia, unspecified Attestations Medical Necessity Statement*: Patient requires further hospitalization due to anemia, chronic kidney disease, acute CHF exacerbation and dementia Coding Level of Care Code Acute Laydown Machine Operator for g Fwd Diagnoses Atrial fibrillation I48.91 Congestive heart failure I50.9 Coronary artery disease I25.10 Chronic kidney disease N18.9 Hypertension I10 Hyperlipidemia E78.5 Dementia F03.90 COPD (chronic obstructive pulmonary disease) J44.9 Diabetes mellitus type 2, insulin dependent E11.9; Z79.4 Anemia D64.9
[2019-04-07 11:25] LABS: Glucose Point of Care 242 mg/dL (70-110)
--- NOTE | 2019-04-07 11:26 | PC.NURSE ---
Spoke with [facility]. Given update. Dai with [facility] reported patient had been working with [facility] with talks of Hospice. [facility] will be over to [facility] to visit patient today and have a goals of care conversation and possibly transition to hospice at home upon discharge.
[2019-04-07 11:27] LABS: Ammonia 64 umol/L (16-60)
[2019-04-07] MEDS: pantoprazole DR 40 mg Tablet PO (13:44)
[2019-04-07] MEDS: warfarin 1 mg Tablet PO (13:47)
[2019-04-07 17:10] LABS: Glucose Point of Care 234 mg/dL (70-110)
[2019-04-07] MEDS: sodium chloride 0.9% 1,000 ML 30 ML IV (18:30)
[2019-04-07 21:18] LABS: Glucose Point of Care 204 mg/dL (70-110)
[2019-04-07] MEDS: trazodone 50 mg Tablet PO (21:35)
[2019-04-08] VITALS (10 sets, daily range): BP systolic 122–181; BP diastolic 54–86; PULSE 61–103; RESP 17–18; TEMP 36.6–37; O2SAT 90–99
[2019-04-08 05:57] LABS: Basophils % 0.3 %; Eosinophils # 0.1 10^3/uL (0.0-0.8); Eosinophils % 1.3 %; Hematocrit 29.7 % (42.0-52.0); Hemoglobin 9.5 g/dL (11.7-16.6); Lymphocytes # 0.7 10^3/uL (0.8-4.8); Lymphocytes % 10.1 %; Mean Corpuscular Hemoglobin 30.4 pg (28.0-34.0); Mean Corpuscular Volume 95.2 fL (80-94); Mean Platelet Volume 9.6 fL (7.4-10.4); Monocytes # 0.4 10^3/uL (0.2-0.9); Neutrophils # 5.9 10^3/uL (1.8-7.7); Neutrophils % 81.7 %; Nucleated Red Blood Cells % 0 %; Platelet Count 142 10^3/cmm (130-400); Red Blood Count 3.12 10^6/uL (4.1-5.3); Red Cell Distribution Width 14.1 % (12.1-15.1); White Blood Count 7.2 10^3/uL (4.0-10.0)
[2019-04-08 06:13] LABS: INR 2.12 (0.8-1.2)
[2019-04-08 06:56] LABS: Glucose Point of Care 67 mg/dL (70-110)
[2019-04-08 08:59] LABS: Alanine Aminotransferase 24 U/L (0-41); Albumin Level 3.1 g/dL (3.5-5.2); Alkaline Phosphatase 55 IU/L (40-130); Anion Gap 14.9 (5-19); Aspartate Amino Transferase 28 U/L (0-40); Blood Urea Nitrogen 43 mg/dL (8-23); Calcium 9.3 mg/Dl (8.8-10.2); Carbon Dioxide 29 mmol/L (22-29); Chloride 98 mmol/L (98-107); Globulin 3.5 g/dL (1.3-4.6); Glucose 60 mg/dL (74-106); NT Pro B Type Natriuretic Pept 3796 pg/mL (0-450); Potassium 3.9 mmol/L (3.5-5.1); Sodium 138 mmol/L (136-145); Total Bilirubin 1.3 mg/dL (0.15-1.2); Total Protein 6.6 g/dL (6.6-8.7)
[2019-04-08 09:32] LABS: Oxygen Device NC
[2019-04-08] MEDS: tamsulosin 0.4 mg Capsule PO (10:11)
[2019-04-08] MEDS: pantoprazole DR 40 mg Tablet PO (10:11)
[2019-04-08] MEDS: docusate sodium 100 mg Capsule PO ×2 (10:11→18:18)
[2019-04-08] MEDS: digoxin 125 mcg Tablet PO (10:11)
[2019-04-08] MEDS: famotidine 20 mg Tablet 10 MG PO ×2 (10:12→18:18)
[2019-04-08] MEDS: lisinopril 20 mg Tablet 40 MG PO (10:12)
[2019-04-08] MEDS: carvedilol 25 mg Tablet PO ×2 (10:12→18:18)
--- NOTE | 2019-04-08 10:27 | P.PN_ITS ---
Subjective Subjective: Interval history: Patient sitting up in bed at time of exam this morning. He reports continued cough that is dry, no sputum production. He denies any chest pain but reports whenever he takes a breath in he has instant cough. Reports that epigastric discomfort has resolved. Vitals/I&O/Wt Last Vital Signs Temp 98.6 F 04/08/19 08:00 Pulse 61 04/08/19 08:00 Resp 18 04/08/19 08:00 BP 165/86 04/08/19 08:00 Pulse Ox 99 04/08/19 08:00 04/07/19 04/08/19 04/08/19 22:59 06:59 14:59 Intake Total 434.5 / 1364.5 264.0 / 1628.5 Output Total 589 / 789 200 / 989 Balance -154.5 / 575.5 64.0 / 639.5 Weight last 48 hrs Weight 99.025 kg Weight 97.658 kg Weight 90.718 kg Physical Exam Const: COMMON NORMALS: alert GENERAL APPEARANCE: cooperative ORIENTATION/CONSCIOUSNESS: Yes awake, Yes oriented to person and Yes confused; not oriented to place HENMT: COMMON NORMALS: normocephalic and head/scalp atraumatic HEAD & SCALP: normocephalic and atraumatic Eye: COMMON NORMALS: PERRL PUPIL: Yes PERRL Neck/C-Spine: COMMON NORMALS: supple GENERAL: Yes normal visual inspection Resp: COMMON NORMALS: normal respiratory effort EFFORT & INSPECTION: Yes able to speak in complete sentences AUSCULTATION: no rhonchi, wheezes and diminished lung sounds Cardio: COMMON NORMALS: regular rate and regular rhythm RATE: regular rate RHYTHM: regular rhythm OTHER: Paced rhythm, systolic murmur GI: COMMON NORMALS: soft to palpation and non-tender INSPECTION: Yes abdominal distension AUSCULTATION: Yes normoactive bowel sounds PALPATION: Yes soft OTHER: Obese, soft, umbilical hernia that is easily reducible, no tenderness to palpation on exam today Extremity: COMMON NORMALS: no calf tenderness GENERAL: Yes edema Neuro: COMMON NORMALS: CN's II-XII intact bilaterally, moves all extremities and no focal motor deficits SENSORIUM/ORIENTATION: Yes alert, Yes oriented to person and No oriented to place SPEECH: speech normal Psych: COMMON NORMALS: mental status grossly normal and cooperative Skin: COMMON NORMALS: no rashes or lesions noted GENERAL SKIN EXAM: no rashes or lesions noted A&P Assessment and plan (1) Atrial fibrillation: Status post pacemaker placement Coreg 25 mg twice daily Digoxin 125 mcg daily Coumadin, INR daily with pharmacy to adjust dosing to goal INR of 2-[address] Abernathy Status: Acute Code(s): I48.91 - Unspecified atrial fibrillation (2) Congestive heart failure: Acute exacerbation, improved and now euvolemic Repeat echocardiogram showing no change from IV lasix held due to worsening renal function and soft BP Strict I's and O's and daily weights Transition to oral lasix tomorrow Status: Acute Code(s): I50.9 - Heart failure, unspecified (3) Coronary artery disease: Continue home Coreg, not on statin or aspirin Status: Acute Code(s): I25.10 - Atherosclerotic heart disease of [place] coronary artery without angina pectoris (4) Chronic kidney disease: JOAQUIN on CKD Lasix on hold due to increase in BUN and creatinine Very gentle IVF at this time due to slight intravascular volume depletion Status: Acute Code(s): N18.9 - Chronic kidney disease, unspecified (5) Hypertension: Continue home Coreg Status: Acute Code(s): I10 - Essential (primary) hypertension (6) Hyperlipidemia: No longer on statin medication Status: Acute Code(s): E78.5 - Hyperlipidemia, unspecified (7) Dementia: At baseline Status: Acute Code(s): F03.90 - Unspecified dementia without behavioral disturbance (8) COPD (chronic obstructive pulmonary disease): Increased oxygen requirements and wheezing on exam today with increased cough and concern for acute exacerbation Will start Doxycycline 100mg BID and prednisone 40mg PO daily today Wean oxygen as tolerated, patient is not on home O2 Status: Acute Code(s): J44.9 - Chronic obstructive pulmonary disease, unspecified (9) Diabetes mellitus type 2, insulin dependent: Levemir at 30 units twice daily, decreased from home requirement of 54 units twice daily due to hospitalization. on sliding scale insulin as needed. Status: Acute Code(s): E11.9 - Type 2 diabetes mellitus without complications; Z79.4 - filter tank tender helper head (current) use of insulin (10) Anemia: On home coumadin, Appears to be chronic in nature, no evidence of any acute bleeding, epigastric pain has resolved We will continue to monitor hemoglobin closely Iron studies pending. Status: Acute Code(s): D64.9 - Anemia, unspecified Attestations Medical Necessity Statement*: Patient requires further hospitalization due to generalized deconditioning, congestive heart failure, atrial fibrillation, COPD with acute exacerbation requiring oxygen Coding Level of Care Code Acute Clinical Biochemical Geneticist for Chg Fwd Diagnoses Atrial fibrillation I48.91 Congestive heart failure I50.9 Coronary artery disease I25.10 Chronic kidney disease N18.9 Hypertension I10 Hyperlipidemia E78.5 Dementia F03.90 COPD (chronic obstructive pulmonary disease) J44.9 Diabetes mellitus type 2, insulin dependent E11.9; Z79.4 Anemia D64.9
[2019-04-08 10:31] LABS: Glucose Point of Care 273 mg/dL (70-110)
[2019-04-08 11:07] LABS: Iron 12 ug/dL (59-158); Percent Saturation 5.6 % (20-50); Total Iron Binding Capacity 211 mg/dL; Unsaturated Iron Binding 199 ug/dL (112-347)
[2019-04-08] MEDS: predniSONE 20 mg Tablet 40 MG PO (11:46)
[2019-04-08 12:01] LABS: Glucose Point of Care 79 mg/dL (70-110)
[2019-04-08 12:01] LABS: Glucose Point of Care 88 mg/dL (70-110)
--- NOTE | 2019-04-08 15:02 | PC.CHAP ---
Pastoral Care Encounter/Spiritual Assessment Type of Contact [] Declined public services assistant visit [] Patient/Family/Request visit [] Outpatient visit [] Follow-up visit [] Physician referral [] Code/Alert [] Routine visit [] Staff referral [] Actively dying [] Patient sleeping [] Family support [] [] Out of room [] Palliative care [] [] Receiving care in room [] Pre-surgical visit [] Trauma [] Long length of stay [] ICU visit [] Other: Relational/Emotional Strength [] Patient feels connected with others/family/visitors/staff [] Distress [] Loneliness/isolation [] Abandonment Spirituality of Patient [x] Person of Miriam [] Attends Mosque of their Miriam [x] Believes in Prayer [] Reads Bible or Anglican materials [] There are Spiritual issues to be addressed Guard Dance Hall Interventions [x] Prayer [] Active listening [] Non-anxious presence [] Spiritual/emotional support [] Crisis/trauma care [] Spiritual counseling [] Bereavement support [] Provided bereavement packet [] Provided Bible/devotional materials [] Provided toy/stuffed animal, coloring book to patient or family member [x] Completed spiritual assessment [] Provided Communion [] Anointing/[place] [] Salvation [] Other: Impact on Illness or Injury [] Angry [] Fearful [] Anxious [] Often cries [] Exhaustion [] Unable to work [] Unable to attend congregational [] Unable to walk/stand [] Unable to read [] Unable to drive [] Unable to eat/drink [] Unable to sleep [] Unable to be with family [] Other: Summary prayed with chema broderick Time spent with patient 9 min
--- NOTE | 2019-04-08 15:03 | PC.CHAP ---
Pastoral Care Encounter/Spiritual Assessment Type of Contact [] Declined malted milk supervisor visit [] Patient/Family/Request visit [] Outpatient visit [] Follow-up visit [] Physician referral [] Code/Alert [] Routine visit [] Staff referral [] Actively dying [] Patient sleeping [] Family support [] [] Out of room [] Palliative care [] [] Receiving care in room [] Pre-surgical visit [] Trauma [] Long length of stay [] ICU visit [] Other: Relational/Emotional Strength [] Patient feels connected with others/family/visitors/staff [] Distress [] Loneliness/isolation [] Abandonment Spirituality of Patient [] Person of Miriam [] Attends Lutheran of their Miriam [] Believes in Prayer [] Reads Bible or Episcopalian materials [] There are Spiritual issues to be addressed Counter Supply Worker Interventions [] Prayer [] Active listening [] Non-anxious presence [] Spiritual/emotional support [] Crisis/trauma care [] Spiritual counseling [] Bereavement support [] Provided bereavement packet [] Provided Bible/devotional materials [] Provided toy/stuffed animal, coloring book to patient or family member [] Completed spiritual assessment [] Provided Communion [] Anointing/[place] [] Salvation [] Other: Impact on Illness or Injury [] Angry [] Fearful [] Anxious [] Often cries [] Exhaustion [] Unable to work [] Unable to attend scientologist [] Unable to walk/stand [] Unable to read [] Unable to drive [] Unable to eat/drink [] Unable to sleep [] Unable to be with family [] Other: Summary Time spent with patient
--- NOTE | 2019-04-08 15:04 | PC.CHAP ---
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 [] Patient/Family/Request visit [] Outpatient visit [] Follow-up visit [] Physician referral [] Code/Alert [x] Routine visit [] Staff referral [] Actively dying [] Patient sleeping [] Family support [] [] Out of room [] Palliative care [] [] Receiving care in room [] Pre-surgical visit [] Trauma [] Long length of stay [] ICU visit [] Other: Relational/Emotional Strength [] Patient feels connected with others/family/visitors/staff [] Distress [] Loneliness/isolation [] Abandonment Spirituality of Patient [] Person of Miriam [] Attends Orthodoxy of their Miriam [] Believes in Prayer [] Reads Bible or Temple materials [] There are Spiritual issues to be addressed Detective Youth Bureau Interventions x] Prayer [x] Active listening [x] Non-anxious presence [x] Spiritual/emotional support [] Crisis/trauma care [] Spiritual counseling [] Bereavement support [] Provided bereavement packet [] Provided Bible/devotional materials [] Provided toy/stuffed animal, coloring book to patient or family member [x] Completed spiritual assessment [] Provided Communion [] Anointing/[place] [] Salvation [] Other: Impact on Illness or Injury [] Angry [] Fearful [] Anxious [] Often cries [] Exhaustion [] Unable to work [] Unable to attend rastafari [] Unable to walk/stand [] Unable to read [] Unable to drive [] Unable to eat/drink [] Unable to sleep [] Unable to be with family [] Other: Summary prayed very confused Time spent with patient
[2019-04-08] MEDS: warfarin 2 mg Tablet PO (15:21)
[2019-04-08 16:50] LABS: Glucose Point of Care 145 mg/dL (70-110)
[2019-04-08] MEDS: doxycycline 100 mg Tablet PO (18:18)
[2019-04-08 18:49] LABS: Glucose Point of Care 166 mg/dL (70-110)
[2019-04-08 20:41] LABS: Glucose Point of Care 185 mg/dL (70-110)
[2019-04-08] MEDS: trazodone 50 mg Tablet PO (21:16)
[2019-04-09] VITALS (9 sets, daily range): BP systolic 142–160; BP diastolic 62–75; PULSE 61–87; RESP 18–22; TEMP 36.4–36.9; O2SAT 88–100
[2019-04-09 05:36] LABS: Eosinophils % 0.2 %; Hematocrit 28.7 % (42.0-52.0); Hemoglobin 9.1 g/dL (11.7-16.6); Lymphocytes # 0.6 10^3/uL (0.8-4.8); Lymphocytes % 9.8 %; Mean Corpuscular HGB Conc 31.7 g/dL (30.0-36.0); Mean Corpuscular Hemoglobin 30.4 pg (28.0-34.0); Mean Platelet Volume 10.2 fL (7.4-10.4); Monocytes # 0.1 10^3/uL (0.2-0.9); Monocytes % 1.8 %; Neutrophils % 87.8 %; Nucleated Red Blood Cells % 0 %; Platelet Count 132 10^3/cmm (130-400); Red Blood Count 2.99 10^6/uL (4.1-5.3); White Blood Count 5.6 10^3/uL (4.0-10.0)
[2019-04-09 05:54] LABS: Alanine Aminotransferase 24 U/L (0-41); Albumin Level 3.3 g/dL (3.5-5.2); Alkaline Phosphatase 60 IU/L (40-130); Anion Gap 16.6 (5-19); Blood Urea Nitrogen 44 mg/dL (8-23); Carbon Dioxide 26 mmol/L (22-29); Chloride 99 mmol/L (98-107); Globulin 3.3 g/dL (1.3-4.6); Glucose 211 mg/dL (74-106); Potassium 4.6 mmol/L (3.5-5.1); Sodium 137 mmol/L (136-145); Total Bilirubin 1.1 mg/dL (0.15-1.2); Total Protein 6.6 g/dL (6.6-8.7)
[2019-04-09 06:05] LABS: INR 2.31 (0.8-1.2)
[2019-04-09 06:21] LABS: Slide Review Slide Review Perform
[2019-04-09 06:43] LABS: Aspartate Amino Transferase 35 U/L (0-40)
[2019-04-09 06:52] LABS: Glucose Point of Care 198 mg/dL (70-110)
[2019-04-09 07:29] LABS: Digoxin 1.4 ng/mL (0.6-1.2)
[2019-04-09] MEDS: famotidine 20 mg Tablet 10 MG PO ×2 (08:56→19:45)
[2019-04-09] MEDS: doxycycline 100 mg Tablet PO ×2 (08:57→19:46)
[2019-04-09] MEDS: carvedilol 25 mg Tablet PO ×2 (08:57→19:46)
[2019-04-09] MEDS: docusate sodium 100 mg Capsule PO ×2 (08:57→19:46)
--- NOTE | 2019-04-09 10:45 | PC.SOCIAL ---
IMM Page 2 of IMM explained to and signed by patient's family at bedside. Initialed, dated, and timed and placed in chart. Copy provided to patient.
[2019-04-09] MEDS: pantoprazole DR 40 mg Tablet PO (11:22)
[2019-04-09] MEDS: digoxin 125 mcg Tablet PO (11:22)
[2019-04-09] MEDS: predniSONE 20 mg Tablet 40 MG PO (11:22)
[2019-04-09] MEDS: lisinopril 20 mg Tablet 40 MG PO (11:23)
[2019-04-09] MEDS: tamsulosin 0.4 mg Capsule PO (11:23)
[2019-04-09 11:58] LABS: Glucose Point of Care 224 mg/dL (70-110)
--- NOTE | 2019-04-09 16:14 | P.PN_ITS ---
Subjective Subjective: Interval history: Patient sitting up at the side of bed and working with occupational therapy. He denies any chest pain or shortness of breath. Denies having any continued cough today. Discussed with patient and his at bedside due to his continued deconditioning would recommend retirement facility placement, he verbalized understanding and agreed with plan. Vitals/I&O/Wt Last Vital Signs Temp 97.5 F L 04/09/19 11:21 Pulse 61 04/09/19 11:22 Resp 18 04/09/19 11:21 BP 160/75 04/09/19 11:21 Pulse Ox 99 04/09/19 11:21 04/09/19 04/09/19 04/09/19 06:59 14:59 22:59 Intake Total 469.5 / 1392.5 590 / 590 Output Total 400 / 700 Balance 69.5 / 692.5 590 / 590 Weight last 48 hrs Weight 98.883 kg Weight 99.291 kg Weight 99.246 kg Weight 99.025 kg Physical Exam Const: COMMON NORMALS: alert GENERAL APPEARANCE: cooperative ORIENTATION/CONSCIOUSNESS: Yes awake, Yes oriented to person and Yes confused; not oriented to place HENMT: COMMON NORMALS: normocephalic and head/scalp atraumatic HEAD & SCALP: normocephalic and atraumatic Eye: COMMON NORMALS: PERRL PUPIL: Yes PERRL Neck/C-Spine: COMMON NORMALS: supple GENERAL: Yes normal visual inspection Resp: COMMON NORMALS: normal respiratory effort EFFORT & INSPECTION: Yes able to speak in complete sentences AUSCULTATION: no rhonchi, wheezes and diminished lung sounds OTHER: Improved wheezing Cardio: COMMON NORMALS: regular rate and regular rhythm RATE: regular rate RHYTHM: regular rhythm OTHER: Paced rhythm, systolic murmur GI: COMMON NORMALS: soft to palpation and non-tender INSPECTION: Yes abdominal distension AUSCULTATION: Yes normoactive bowel sounds PALPATION: Yes soft OTHER: Obese, soft, umbilical hernia that is easily reducible, no tenderness to palpation on exam today : COMMON NORMALS: Yes no CVA tenderness BLADDER/KIDNEY EXAM: Yes no CVA tenderness Back/Pelvis: COMMON NORMALS: no CVA tenderness Extremity: COMMON NORMALS: no calf tenderness GENERAL: Yes edema Neuro: COMMON NORMALS: CN's II-XII intact bilaterally, moves all extremities and no focal motor deficits SENSORIUM/ORIENTATION: Yes alert, Yes oriented to person and No oriented to place SPEECH: speech normal Psych: COMMON NORMALS: mental status grossly normal and cooperative Skin: COMMON NORMALS: no rashes or lesions noted GENERAL SKIN EXAM: no rashes or lesions noted A&P Assessment and plan (1) Atrial fibrillation: Status post pacemaker placement Coreg 25 mg twice daily Digoxin 125 mcg daily Coumadin, INR daily with pharmacy to adjust dosing to goal INR of 2-[address] Abernathy Status: Acute Code(s): I48.91 - Unspecified atrial fibrillation (2) Congestive heart failure: Acute exacerbation, improved and now euvolemic Repeat echocardiogram showing no change from Restart oral Lasix today, Status: Acute Code(s): I50.9 - Heart failure, unspecified (3) Coronary artery disease: Continue home Coreg, not on statin or aspirin Status: Acute Code(s): I25.10 - Atherosclerotic heart disease of [place] coronary artery without angina pectoris (4) Chronic kidney disease: JOAQUIN on CKD, renal function improving, will restart home Lasix Status: Acute Code(s): N18.9 - Chronic kidney disease, unspecified (5) Hypertension: Continue home Coreg Status: Acute Code(s): I10 - Essential (primary) hypertension (6) Hyperlipidemia: No longer on statin medication Status: Acute Code(s): E78.5 - Hyperlipidemia, unspecified (7) Dementia: At baseline Status: Acute Code(s): F03.90 - Unspecified dementia without behavioral disturbance (8) COPD (chronic obstructive pulmonary disease): Increased oxygen requirements and wheezing on exam today with increased cough and concern for acute exacerbation Will start Doxycycline 100mg BID and prednisone 40mg PO daily today Wean oxygen as tolerated, patient is not on home O2 Status: Acute Code(s): J44.9 - Chronic obstructive pulmonary disease, unspecified (9) Diabetes mellitus type 2, insulin dependent: Levemir at 25 units twice daily, decreased from home requirement of 54 units twice daily due to hospitalization. on sliding scale insulin as needed. Status: Acute Code(s): E11.9 - Type 2 diabetes mellitus without complications; Z79.4 - nursing home (current) use of insulin (10) Anemia: On home coumadin, Appears to be chronic in nature, no evidence of any acute bleeding, epigastric pain has resolved We will continue to monitor hemoglobin closely Iron deficiency, started on ferrous sulfate twice daily Status: Acute Code(s): D64.9 - Anemia, unspecified Attestations Medical Necessity Statement*: Patient requires continued hospitalization due to acute COPD exacerbation and continued oxygen requirements. Along with acute kidney injury Coding Level of Care Code Acute Sales Representative Door To Door for g Fwd Diagnoses Atrial fibrillation I48.91 Congestive heart failure I50.9 Coronary artery disease I25.10 Chronic kidney disease N18.9 Hypertension I10 Hyperlipidemia E78.5 Dementia F03.90 COPD (chronic obstructive pulmonary disease) J44.9 Diabetes mellitus type 2, insulin dependent E11.9; Z79.4 Anemia D64.9
[2019-04-09 17:27] LABS: Glucose Point of Care 368 mg/dL (70-110)
[2019-04-09] MEDS: ferrous sulfate EC 325 mg Tablet PO (19:46)
[2019-04-09 21:08] LABS: Glucose Point of Care 436 mg/dL (70-110)
[2019-04-09] MEDS: trazodone 50 mg Tablet PO (21:11)
[2019-04-10] VITALS (7 sets, daily range): BP systolic 142–167; BP diastolic 58–85; PULSE 57–72; RESP 18–19; TEMP 36.3–37.1; O2SAT 82–99
[2019-04-10 00:16] LABS: Glucose Point of Care 411 mg/dL (70-110)
[2019-04-10 04:45] LABS: Hematocrit 26.5 % (42.0-52.0); Hemoglobin 8.2 g/dL (11.7-16.6); Lymphocytes # 0.7 10^3/uL (0.8-4.8); Mean Corpuscular HGB Conc 30.9 g/dL (30.0-36.0); Mean Corpuscular Volume 90.4 fL (80-94); Mean Platelet Volume 9.6 fL (7.4-10.4); Monocytes # 0.3 10^3/uL (0.2-0.9); Monocytes % 4.8 %; Neutrophils # 5.1 10^3/uL (1.8-7.7); Neutrophils % 83.5 %; Nucleated Red Blood Cells % 0 %; Platelet Count 131 10^3/cmm (130-400); Red Blood Count 2.93 10^6/uL (4.1-5.3); Red Cell Distribution Width 13.9 % (12.1-15.1); White Blood Count 6.1 10^3/uL (4.0-10.0)
[2019-04-10] MEDS: ferrous sulfate EC 325 mg Tablet PO (05:35)
[2019-04-10 05:40] LABS: Blood Urea Nitrogen 55 mg/dL (8-23); Calcium 8.9 mg/Dl (8.8-10.2); Carbon Dioxide 26 mmol/L (22-29); Chloride 99 mmol/L (98-107); Glucose 287 mg/dL (74-106); Sodium 136 mmol/L (136-145)
[2019-04-10 06:46] LABS: Slide Review Slide Review Perform
[2019-04-10 06:48] LABS: Glucose Point of Care 193 mg/dL (70-110)
[2019-04-10] MEDS: digoxin 125 mcg Tablet PO (08:35)
[2019-04-10] MEDS: FUROsemide 20 mg Tablet PO (08:36)
[2019-04-10] MEDS: famotidine 20 mg Tablet 10 MG PO (08:36)
[2019-04-10] MEDS: docusate sodium 100 mg Capsule PO (08:36)
[2019-04-10] MEDS: carvedilol 25 mg Tablet PO (08:36)
[2019-04-10] MEDS: pantoprazole DR 40 mg Tablet PO (08:36)
[2019-04-10] MEDS: tamsulosin 0.4 mg Capsule PO (08:36)
[2019-04-10] MEDS: predniSONE 20 mg Tablet 40 MG PO (08:37)
[2019-04-10] MEDS: doxycycline 100 mg Tablet PO (08:37)
[2019-04-10] MEDS: lisinopril 20 mg Tablet 40 MG PO (08:37)
[2019-04-10 12:15] LABS: Glucose Point of Care 169 mg/dL (70-110)
--- NOTE | 2019-04-10 12:42 | P.DS_ITS ---
Discharge Providers Date of Admission: 04/06/19 17:33 Date of Discharge: 04/10/19 Attending Provider at Admission: Nikki Mcintyre MD Attending Provider at Discharge: Nikki Mcintyre MD Primary Care Provider: Michael Soliman MD Diagnoses at Discharge Discharge Diagnosis (1) Atrial fibrillation: Status: Acute Problem details: Continue on home Coreg 25 mg twice daily Digoxin 125 mcg daily Continue on Coumadin with a goal INR of 2-3 (2) Congestive heart failure: Status: Acute Problem details: Euvolemic at this time Continue on Lasix but will decrease dose to 20 mg every other day (3) Coronary artery disease: Status: Acute Problem details: Continue on aspirin, Coreg Followed by Dr. Abernathy (4) Chronic kidney disease: Status: Acute Problem details: Patient has improved urine output, but would recommend repeat BMP in 2 days at nursing home facility Lasix decreased to 20 mg every other day (5) Hypertension: Status: Acute Problem details: Continue on Lasix, Coreg, digoxin (6) Hyperlipidemia: Status: Acute (7) Dementia: Status: Acute Problem details: Mentation is at baseline (8) COPD (chronic obstructive pulmonary disease): Status: Acute Problem details: COPD with acute exacerbation continue on prednisone 40 mg daily for a total of 5 days and doxycycline 100 mg twice daily for total of 10 days (9) Diabetes mellitus type 2, insulin dependent: Status: Acute Problem details: Continue with Levemir at 25 units twice daily In addition to sliding scale insulin (10) Anemia: Status: Acute Problem details: Iron deficiency anemia, patient is on home Coumadin, no evidence of any active bleeding, recommended continued outpatient follow-up Reason for Visit Reason for Visit: Reason For Visit: CONFUSION Hospital Course Hospital Course: Patient was seen and evaluated in the emergency department noted to have concern for generalized deconditioning and acute CHF exacerbation and admitted for further evaluation and treatment. He was given IV diuresis and monitor closely. He ended was initially requiring 3 L of oxygen by nasal cannula which gradually improved with diuresis. Patient's renal function was monitored closely and he did have worsening of his BUN and creatinine with diu resis and therefore Lasix was adjusted. Respiratory status continued to improve but patient did develop worsening wheezing and concern for an acute COPD exacerbation on top of his CHF exacerbation. He was started on doxycycline and prednisone and continued to have improvement. Patient was weaned down on his oxygen and saturations continued to improve with significant improvement in his symptoms. Patient did continue to have some elevation in his BUN and creatinine but on date of discharge his urine output was much improved and he denied any concerns. Discussed with patient and his at bedside and recommendation was to discharge to nursing home facility due to recurrent falls at home and generalized deconditioning Physical Exam Const: COMMON NORMALS: alert GENERAL APPEARANCE: cooperative ORIENTATION/CONSCIOUSNESS: Yes awake, Yes oriented to person and Yes confused; not oriented to place HENMT: COMMON NORMALS: normocephalic and head/scalp atraumatic HEAD & SCALP: normocephalic and atraumatic Eye: COMMON NORMALS: PERRL PUPIL: Yes PERRL Neck/C-Spine: COMMON NORMALS: supple GENERAL: Yes normal visual inspection Resp: COMMON NORMALS: normal respiratory effort EFFORT & INSPECTION: Yes able to speak in complete sentences AUSCULTATION: no rhonchi, wheezes and diminished lung sounds OTHER: No wheezing Cardio: COMMON NORMALS: regular rate and regular rhythm RATE: regular rate RHYTHM: regular rhythm OTHER: Paced rhythm, systolic murmur GI: COMMON NORMALS: soft to palpation and non-tender INSPECTION: Yes abdominal distension AUSCULTATION: Yes normoactive bowel sounds PALPATION: Yes soft OTHER: Obese, soft, nontender : COMMON NORMALS: Yes no CVA tenderness BLADDER/KIDNEY EXAM: Yes no CVA tenderness Back/Pelvis: COMMON NORMALS: no CVA tenderness Extremity: COMMON NORMALS: no calf tenderness GENERAL: Yes edema Neuro: COMMON NORMALS: CN's II-XII intact bilaterally, moves all extremities and no focal motor deficits SENSORIUM/ORIENTATION: Yes alert, Yes oriented to person and No oriented to place SPEECH: speech normal Psych: COMMON NORMALS: mental status grossly normal and cooperative Skin: COMMON NORMALS: no rashes or lesions noted GENERAL SKIN EXAM: no rashes or lesions noted Discharge Data Data Completed and Pending: Completed Studies During Hospitalization Category Date Time Status CT head wo con* 7 0450 Urgent Cat Scan 04/06/19 12:43 Completed XR KUB portable 7 4018 Routine Exams 04/07/19 11:10 Completed XR chest 1V [place] ble 13382 Urgent Exams 04/06/19 12:43 Completed XR chest 2V* 7104 6 Routine Exams 04/07/19 07:52 Completed CV echo complete* 08010 Routine Ultrasound 04/06/19 17:04 Completed Pending at discharge Category Date Time Status Occult Blood Stoo l Routine Lab 04/07/19 11:12 Ordered Labs from last 24 hours 04/10/19 04/10/19 04/10/19 12:09 06:39 04:30 WBC RBC Hgb Hct MCV MCH MCHC RDW Plt Count MPV Neut % (Auto) Lymph % (Auto) [place] % (Auto) Eos % (Auto) Baso % (Auto) Neut # (Auto) Lymph # (Auto) [place] # (Auto) Eos # (Auto) Baso # (Auto) Nucleated RBC % (a uto) Nucleated RBCs # Sodium 136 Potassium 4.0 Chloride 99 Carbon Dioxide 26 Anion Gap 15.0 BUN 55 H Creatinine 1.9 H Glucose 287 H POC Glucose 169 193 Calcium 8.9 04/10/19 04/10/19 04/09/19 04:30 00:12 20:58 WBC 6.1 RBC 2.93 L Hgb 8.2 L Hct 26.5 L MCV 90.4 D MCH 28.0 MCHC 30.9 RDW 13.9 Plt Count 131 MPV 9.6 Neut % (Auto) 83.5 Lymph % (Auto) 11.0 [place] % (Auto) 4.8 Eos % (Auto) 0.0 Baso % (Auto) 0.0 Neut # (Auto) 5.1 Lymph # (Auto) 0.7 L [place] # (Auto) 0.3 Eos # (Auto) 0.0 Baso # (Auto) 0.0 Nucleated RBC % (a uto) 0 Nucleated RBCs # 0.0 Sodium Potassium Chloride Carbon Dioxide Anion Gap BUN Creatinine Glucose POC Glucose 411 436 Calcium 04/09/19 17:18 WBC RBC Hgb Hct MCV MCH MCHC RDW Plt Count MPV Neut % (Auto) Lymph % (Auto) [place] % (Auto) Eos % (Auto) Baso % (Auto) Neut # (Auto) Lymph # (Auto) [place] # (Auto) Eos # (Auto) Baso # (Auto) Nucleated RBC % (a uto) Nucleated RBCs # Sodium Potassium Chloride Carbon Dioxide Anion Gap BUN Creatinine Glucose POC Glucose 368 Calcium Vitals: Last Vital Signs Temp 97.4 F L 04/10/19 08:00 Pulse 70 04/10/19 11:28 Resp 18 04/10/19 08:00 BP 167/85 04/10/19 08:00 Pulse Ox 97 04/10/19 11:28 Discharge Plan Discharge Patient Disposition: Xfer SNF Condition: Stable Prescriptions: New prednisone 20 mg Tablet 40 mg PO DAILY 3 Days Qty: 6 RF: 0 doxycycline monohydrate 100 mg Tablet 100 mg PO BID 8 Days Qty: 16 RF: 0 warfarin 2 mg Tablet 2 mg PO MoWeFr@1400 30 Days Qty: 16 RF: 0 docusate sodium 100 mg Capsule 100 mg PO BID 30 Days Qty: 60 RF: 0 furosemide 20 mg Tablet 20 mg PO EVERY OTHER DAY 30 Days Qty: 15 RF: 0 Jantoven 1 mg Tablet 1 mg PO SuTuThSa 30 Days Qty: 16 RF: 0 ferrous sulfate 325 mg (65 mg iron) Tablet,Delayed Release (Dr/Ec) 325 mg PO BID@0600,1600 30 Days Qty: 60 RF: 0 Levemir U-100 Insulin 100 unit/mL Solution 25 unit SUBCUT BID 30 Days Qty: 15 RF: 0 Continued carvedilol 25 mg Tablet 25 mg PO BID RF: 0 trandolapril 4 mg Tablet 4 mg PO DAILY RF: 0 famotidine 10 mg Tablet 10 mg PO BID RF: 0 trazodone 50 mg Tablet 50 mg PO BEDTIME RF: 0 digoxin 125 mcg (0.125 mg) Tablet 125 mcg PO DAILY RF: 0 Novolog PenFill U-100 Insulin 100 unit/mL Cartridge See Rx Instructions .ROUTE .COMPLEX RF: 0 Uloric 40 mg Tablet 40 mg PO DAILY RF: 0 Flomax 0.4 mg PO DAILY RF: 0 Multiple Vitamins Tablet 1 tab PO DAILY RF: 0 Nitrostat 0.4 mg Tablet, Sublingual 0.4 mg SUBLINGUAL Q5M PRN (Reason: Chest Pain) RF: 0 Discontinued warfarin 1 mg tablet See Rx Instructions .ROUTE .COMPLEX RF: 0 Lasix 80 mg Tablet See Rx Instructions .ROUTE .COMPLEX RF: 0 metformin 1,000 mg Tablet 1,000 mg PO DAILY RF: 0 Levemir FlexTouch U-100 Insuln 100 unit/mL (3 mL) Insulin Pen See Rx Instructions .ROUTE .COMPLEX RF: 0 Discharge Orders: Discharge Order (Routine); Ordered 04/10/19 Ordered By: Nikki Mcintyre Referrals: Michael Soliman MD [Primary Care Provider] - 1-3 days (Recommend recheck BMP in 2-3 days) Discharge Diet: Cardiac, diabetic diet, mechanical soft Discharge Activity: As per PT/OT instructions Activity Restrictions/Additional Instructions: Follow-up with primary care provider at the nursing home facility in 2 to 3 days with recommended recheck BMP in 2 to 3 days. Increase activity as directed by therapy. Decreased Levemir to 25 units twice daily Continue on prednisone 40 mg daily as prescribed Continue on doxycycline 100 mg twice daily as prescribed Continue to monitor PT/INR with a goal INR of 2-3 Continue with oxygen as needed per protocol Discharge Attestations Time Spent in Discharge Care*: greater than 30 min Quality Metrics Clinical Quality Measures During this hospital stay, did patient experience: None Coding Level of Care Code Acute Heel Emery Buffer for Ziyadg Fwd Exam Problem Focused Diagnoses Atrial fibrillation I48.91 Congestive heart failure I50.9 Coronary artery disease I25.10 Chronic kidney disease N18.9 Hypertension I10 Hyperlipidemia E78.5 Dementia F03.90 COPD (chronic obstructive pulmonary disease) J44.9 Diabetes mellitus type 2, insulin dependent E11.9; Z79.4 Anemia D64.9
[2019-04-10] MEDS: warfarin 2 mg Tablet PO (13:00)
== END 2019-04-10 15:15 | disposition skilled nursing facility (03) | DRG 291 ==
LOC: ER 16:50 → MEDSURG 17:33
PROVIDERS: Admitting Provider Family Medicine; Emergency Provider Family Medicine; Family Provider Family Medicine; PCP Family Medicine; Visit Provider Family Medicine
DX: I13.0 Hypertensive heart and chronic kidney disease with heart failure and stage 1 through stage 4 chronic kidney disease, or unspecified chronic kidney disease (principal); I50.33 Acute on chronic diastolic (congestive) heart failure; J44.1 Chronic obstructive pulmonary disease with (acute) exacerbation; I48.91 Unspecified atrial fibrillation; F03.90 Unspecified dementia, unspecified severity, without behavioral disturbance, psychotic disturbance, mood disturbance, and anxiety; Z87.891 Personal history of nicotine dependence; I25.10 Atherosclerotic heart disease of native coronary artery without angina pectoris; E78.5 Hyperlipidemia, unspecified; N18.9 Chronic kidney disease, unspecified; E11.22 Type 2 diabetes mellitus with diabetic chronic kidney disease; D50.9 Iron deficiency anemia, unspecified; Z79.01 Long term (current) use of anticoagulants; Z79.84 Long term (current) use of oral hypoglycemic drugs; I49.5 Sick sinus syndrome; Z95.0 Presence of cardiac pacemaker
CPT/HCPCS: 36415; 36416; 36600; 51798; 70450; 71045; 71046; 74018; 80048; 80053; 80162; 80307; 81003; 82140; 82550; 82803; 82962; 83036; 83540; 83550; 83605; 83690; 83735; 83880; 84443; 84484; 85025; 85610; 92523; 92610; 93005; 93306; 96105; 96372; 96375; 97110; 97116; 97161; 97166; 97530; 97535; 99281; A9270; J0360; J1815; J1940; J7030; J7512

== ENCOUNTER 2019-04-13 14:57 | Outpatient (RCR) | payer OTHER, SELFPAY ==
[2019-04-13 15:35] LABS: INR 2.12 (0.8-1.2)
[2019-04-13 15:46] LABS: Anion Gap 19.7 (5-19); Blood Urea Nitrogen 46 mg/dL (8-23); Calcium 10.2 mg/Dl (8.8-10.2); Carbon Dioxide 26 mmol/L (22-29); Chloride 100 mmol/L (98-107); Glucose 175 mg/dL (74-106); Potassium 4.7 mmol/L (3.5-5.1); Sodium 141 mmol/L (136-145)
[2019-04-20 09:13] LABS: Basophils % 0.3 %; Eosinophils # 0.3 10^3/uL (0.0-0.8); Eosinophils % 3.5 %; Hemoglobin 8.6 g/dL (11.7-16.6); Lymphocytes # 0.9 10^3/uL (0.8-4.8); Lymphocytes % 11.1 %; Mean Corpuscular HGB Conc 30.7 g/dL (30.0-36.0); Mean Corpuscular Hemoglobin 29.2 pg (28.0-34.0); Mean Corpuscular Volume 94.9 fL (80-94); Mean Platelet Volume 9.9 fL (7.4-10.4); Monocytes # 0.6 10^3/uL (0.2-0.9); Monocytes % 8.4 %; Neutrophils # 5.8 10^3/uL (1.8-7.7); Neutrophils % 76.2 %; Nucleated Red Blood Cells % 0 %; Platelet Count 188 10^3/cmm (130-400); Red Blood Count 2.95 10^6/uL (4.1-5.3); Red Cell Distribution Width 14.5 % (12.1-15.1); White Blood Count 7.7 10^3/uL (4.0-10.0)
[2019-04-20 09:34] LABS: Anion Gap 13.1 (5-19); Blood Urea Nitrogen 30 mg/dL (8-23); Calcium 9.6 mg/Dl (8.8-10.2); Carbon Dioxide 29 mmol/L (22-29); Chloride 102 mmol/L (98-107); Glucose 95 mg/dL (74-106); Potassium 4.1 mmol/L (3.5-5.1); Sodium 140 mmol/L (136-145)
== END 2019-05-01 23:59 | disposition home or self-care (01) ==
LOC: LAB 14:57
PROVIDERS: Family Provider Family Medicine; PCP Family Medicine; Visit Provider Internal Medicine Medical Oncology
DX: I50.9 Heart failure, unspecified (principal); Z79.4 Long term (current) use of insulin; I12.9 Hypertensive chronic kidney disease with stage 1 through stage 4 chronic kidney disease, or unspecified chronic kidney disease; N18.9 Chronic kidney disease, unspecified
CPT/HCPCS: 80048; 85025; 85610

== ENCOUNTER 2019-04-21 11:39 | Outpatient (RCR) | payer OTHER, SELFPAY ==
[2019-04-21 12:12] LABS: Influenza A by IFA Negative (Negative); Influenza B by IFA Negative (Negative)
== END 2019-05-01 23:59 | disposition home or self-care (01) ==
LOC: LAB 11:39
PROVIDERS: Family Provider Family Medicine; PCP Family Medicine; Visit Provider Family Medicine
DX: Z01.89 Encounter for other specified special examinations (principal)
CPT/HCPCS: 87804

== ENCOUNTER 2019-06-03 16:27 | Inpatient (IN) | payer OTHER, MEDICARE, BC, SELFPAY ==
[2019-06-03 16:31] VITALS: BP 105/56; RESP 16; TEMP 36.6; O2SAT 100; BMI 28.5
--- NOTE | 2019-06-03 16:38 | ED_ITS ---
Entered by Iwona Mancia, acting as scribe for Documented by User: Benji Roldan MD 06/03/19 19:47 HPI - General Adult General: Chief complaint: General Medical Stated complaint: abd pain/weak Time Seen by Provider: 06/03/19 16:38 PFSH ED PFSH: Social History Smoking and tobacco status: former smoker Alcohol intake: never Household members: spouse Physical Exam Const: COMMON NORMALS: no apparent distress, oriented x3 and healthy appearing HENMT: COMMON NORMALS: normocephalic and head/scalp atraumatic HEAD & SCALP: normocephalic and atraumatic Eye: COMMON NORMALS: PERRL and EOMs intact bilaterally PUPIL: Yes PERRL Neck/C-Spine: COMMON NORMALS: full ROM and supple Chest: COMMONS NORMALS: inspection of chest normal and palpation of chest normal Resp: COMMON NORMALS: normal respiratory effort, no retractions, no use of accessory muscles and clear to auscultation bilaterally AUSCULTATION: clear to auscultation bilaterally Cardio: COMMON NORMALS: regular rate, regular rhythm and no murmurs RATE: regular rate RHYTHM: regular rhythm GI: COMMON NORMALS: normal to inspection, nondistended, normoactive bowel sounds, soft to palpation, non-tender and no masses PALPATION: Yes soft Extremity: COMMON NORMALS: normal to inspection and full ROM Neuro: COMMON NORMALS: oriented x3, moves all extremities and no focal motor deficits Psych: COMMON NORMALS: mental status grossly normal, thought process normal and cooperative THOUGHT PROCESS: normal thought process Skin: COMMON NORMALS: no rashes or lesions noted and no wounds GENERAL SKIN EXAM: no rashes or lesions noted Course Vital Signs: Vital signs: Vital Signs Temperature 98.4 F 06/04/19 04:00 Pulse Rate 67 06/04/19 04:00 Respiratory Rate 20 H 06/04/19 04:00 Blood Pressure 124/64 06/04/19 04:00 Pulse Oximetry 100 06/04/19 04:00 MDM - General Adult MDM Narrative: Medical decision making narrative: Doing presents here does have acute kidney injury along with dehydration. Patient has slight digitalis toxicity likely due to his kidney injury. This is all likely causing his weakness. Family is also anemic placed back in a fpc. I spoke to hospitalist and will admit and I feel patient is stable for the floor. Patient is DNR and DNI and is currently on hospice. Lab Data: Labs: Lab Results 06/03/19 06/03/19 06/03/19 Range/Units 01:17 17:12 17:44 WBC 6.7 (4.0-10.0) 10^3/ uL RBC 4.50 (4.1-5.3) 10^6/u L Hgb 12.7 (11.7-16.6) g/dL Hct 38.7 L (42.0-52.0) % MCV 86.0 (80-94) fL MCH 28.2 (28.0-34.0) pg MCHC 32.8 (30.0-36.0) g/dL RDW 14.2 (12.1-15.1) % Plt Count 138 (130-400) 10^3/c mm MPV 9.0 (7.4-10.4) fL Neut % (Auto) 66.8 % Lymph % (Auto) 21.5 % Crawford % (Auto) 6.7 % Eos % (Auto) 4.3 % Baso % (Auto) 0.3 % Neut # (Auto) 4.5 (1.8-7.7) 10^3/u L Lymph # (Auto) 1.5 (0.8-4.8) 10^3/u L Crawford # (Auto) 0.5 (0.2-0.9) 10^3/u L Eos # (Auto) 0.3 (0.0-0.8) 10^3/u L Baso # (Auto) 0.0 (0.0-0.1) 10^3/u L Nucleated RBC % (a uto) 0 % Nucleated RBCs # 0.0 /100WBC PT (10.5-13.3) SECO NDS INR (0.8-1.2) APTT (23.9-36.7) SECO NDS Specimen Type Arterial Sample Site Radial, left ABG pH 7.41 (7.35-7.45) ABG pCO2 41.8 (35-45) mmHg ABG pO2 85.2 (80.0-100.0) mmH g ABG HCO3 26.6 H (22-26) mmol/L ABG O2 Saturation 97.6 ABG Base Excess 1.7 (-2.0-2.0) mmol/ L Eduardo Test Pos A-a O2 Gradient 11.9 H (5-10) mmHg Hematocrit 40.1 L (42-52) % Hgb O2 Saturation 96.2 (95-100) % Carboxyhemoglobin 1.2 (0.4-20.1) %THgb Methemoglobin 0.1 L (0.4-1.5) % Total Hemoglobin 13.1 L (14-18) g/dL Sodium 134.0 (131-143) mmol/L Potassium 4.9 (3.5-5.0) mmol/L Glucose 221.0 H (70-115) mg/dL Ionized Calcium 1.3 (1.1-1.4) mmol/L O2 Delivery Device Room air FiO2 21.0 % Hash Slinger ID ed Chloride (98-107) mmol/L Carbon Dioxide (22-29) mmol/L Anion Gap (5-19) BUN (8-23) mg/dL Creatinine (0.7-1.2) mg/dL Calcium (8.5-10.5) mg/dL Total Bilirubin (0.15-1.2) mg/dL AST (0-40) U/L ALT (0-41) U/L Alkaline Phosphata se (40-130) IU/L Troponin T Baselin e (0-15) ng/mL Troponin T 120 Min nenana (0-15) ng/mL Delta Troponin T (0-10) ABS# NT-Pro-B Natriuret Pep (0-450) pg/mL Total Protein (6.6-8.7) g/dL Albumin (3.5-5.2) g/dL Globulin (1.3-4.6) g/dL Lipase (13-60) U/L Digoxin (0.6-1.2) ng/mL Influenza Type A A g Negative (Negative) POC Influenza B Ag Negative (Negative) 06/03/19 06/03/19 06/03/19 Range/Units 17:44 17:44 17:44 WBC (4.0-10.0) 10^3/ uL RBC (4.1-5.3) 10^6/u L Hgb (11.7-16.6) g/dL Hct (42.0-52.0) % MCV (80-94) fL MCH (28.0-34.0) pg MCHC (30.0-36.0) g/dL RDW (12.1-15.1) % Plt Count (130-400) 10^3/c mm MPV (7.4-10.4) fL Neut % (Auto) % Lymph % (Auto) % Crawford % (Auto) % Eos % (Auto) % Baso % (Auto) % Neut # (Auto) (1.8-7.7) 10^3/u L Lymph # (Auto) (0.8-4.8) 10^3/u L Crawford # (Auto) (0.2-0.9) 10^3/u L Eos # (Auto) (0.0-0.8) 10^3/u L Baso # (Auto) (0.0-0.1) 10^3/u L Nucleated RBC % (a uto) % Nucleated RBCs # /100WBC PT 28.60 H (10.5-13.3) SECO NDS INR 2.58 H (0.8-1.2) APTT 42.4 H (23.9-36.7) SECO NDS Specimen Type Sample Site ABG pH (7.35-7.45) ABG pCO2 (35-45) mmHg ABG pO2 (80.0-100.0) mmH g ABG HCO3 (22-26) mmol/L ABG O2 Saturation ABG Base Excess (-2.0-2.0) mmol/ L Eduardo Test A-a O2 Gradient (5-10) mmHg Hematocrit (42-52) % Hgb O2 Saturation (95-100) % Carboxyhemoglobin (0.4-20.1) %THgb Methemoglobin (0.4-1.5) % Total Hemoglobin (14-18) g/dL Sodium 134 L (131-143) mmol/L Potassium 5.6 H (3.5-5.0) mmol/L Glucose 232 H (70-115) mg/dL Ionized Calcium (1.1-1.4) mmol/L O2 Delivery Device FiO2 % Hash Slinger ID Chloride 94 L (98-107) mmol/L Carbon Dioxide 28 (22-29) mmol/L Anion Gap 17.6 (5-19) BUN 48 H (8-23) mg/dL Creatinine 2.4 H (0.7-1.2) mg/dL Calcium 10.6 H (8.5-10.5) mg/dL Total Bilirubin 0.5 (0.15-1.2) mg/dL AST 16 (0-40) U/L ALT 13 (0-41) U/L Alkaline Phosphata se 63 (40-130) IU/L Troponin T Baselin e 97 H (0-15) ng/mL Troponin T 120 Min nenana (0-15) ng/mL Delta Troponin T (0-10) ABS# NT-Pro-B Natriuret Pep 1854 H (0-450) pg/mL Total Protein 7.6 (6.6-8.7) g/dL Albumin 3.8 (3.5-5.2) g/dL Globulin 3.8 (1.3-4.6) g/dL Lipase 44 (13-60) U/L Digoxin 2.8 H* (0.6-1.2) ng/mL Influenza Type A A g (Negative) POC Influenza B Ag (Negative) 06/03/19 Range/Units 19:11 WBC (4.0-10.0) 10^3/ uL RBC (4.1-5.3) 10^6/u L Hgb (11.7-16.6) g/dL Hct (42.0-52.0) % MCV (80-94) fL MCH (28.0-34.0) pg MCHC (30.0-36.0) g/dL RDW (12.1-15.1) % Plt Count (130-400) 10^3/c mm MPV (7.4-10.4) fL Neut % (Auto) % Lymph % (Auto) % Crawford % (Auto) % Eos % (Auto) % Baso % (Auto) % Neut # (Auto) (1.8-7.7) 10^3/u L Lymph # (Auto) (0.8-4.8) 10^3/u L Crawford # (Auto) (0.2-0.9) 10^3/u L Eos # (Auto) (0.0-0.8) 10^3/u L Baso # (Auto) (0.0-0.1) 10^3/u L Nucleated RBC % (a uto) % Nucleated RBCs # /100WBC PT (10.5-13.3) SECO NDS INR (0.8-1.2) APTT (23.9-36.7) SECO NDS Specimen Type Sample Site ABG pH (7.35-7.45) ABG pCO2 (35-45) mmHg ABG pO2 (80.0-100.0) mmH g ABG HCO3 (22-26) mmol/L ABG O2 Saturation ABG Base Excess (-2.0-2.0) mmol/ L Eduardo Test A-a O2 Gradient (5-10) mmHg Hematocrit (42-52) % Hgb O2 Saturation (95-100) % Carboxyhemoglobin (0.4-20.1) %THgb Methemoglobin (0.4-1.5) % Total Hemoglobin (14-18) g/dL Sodium (131-143) mmol/L Potassium (3.5-5.0) mmol/L Glucose (70-115) mg/dL Ionized Calcium (1.1-1.4) mmol/L O2 Delivery Device FiO2 % Hash Slinger ID Chloride (98-107) mmol/L Carbon Dioxide (22-29) mmol/L Anion Gap (5-19) BUN (8-23) mg/dL Creatinine (0.7-1.2) mg/dL Calcium (8.5-10.5) mg/dL Total Bilirubin (0.15-1.2) mg/dL AST (0-40) U/L ALT (0-41) U/L Alkaline Phosphata se (40-130) IU/L Troponin T Baselin e (0-15) ng/mL Troponin T 120 Min nenana 89.71 H (0-15) ng/mL Delta Troponin T -7.29 L (0-10) ABS# NT-Pro-B Natriuret Pep (0-450) pg/mL Total Protein (6.6-8.7) g/dL Albumin (3.5-5.2) g/dL Globulin (1.3-4.6) g/dL Lipase (13-60) U/L Digoxin (0.6-1.2) ng/mL Influenza Type A A g (Negative) POC Influenza B Ag (Negative) EKG Data^: EKG 1: Attestation: I personally reviewed and interpreted this EKG as follows: EKG interpretation date: 06/03/19 EKG interpretation time: 19:01 Interpretation: paced hr [address] or t wave abnormalities qrs 175 qtc 408 Discharge Plan Discharge Patient Disposition: Admitted As Inpatient Admit Provider: Cayetano Cotter Clinical Impression: Acute kidney injury, Acute dehydration, Digitalis toxicity Condition: Stable Referrals: Michael Soliman MD [Primary Care Provider] - Discharge Date/Time: 06/03/19 21:18 Coding Level of Care Code ED Manager Drug for Chg Fwd Exam Comprehensive Documented by User: Jonnie Reilly DO 06/04/19 06:11 HPI - General Adult General: Chief complaint: General Medical Stated complaint: abd pain/weak Time Seen by Provider: 06/03/19 16:38 Source: patient Mode of arrival: wheelchair Limitations: no limitations History of Present Illness: HPI narrative: 84 yo m came to the er pov for abd pain. Pt was sent over from . Pt family states that he has not been eating or drinking very bad. Family states that he does get short of breath alot of the time, also the pt has been having trouble getting to the bathroom in time. Pt has dementia. Family said that the pt is being put on hospice. complaint: abd pain and weakness Onset (ago): day(s) Radiation: abdomen Severity: mild Associated symptoms: Reports confusion, dyspnea and short of breath; Deny chest pain, malaise, nausea, rash or vomiting Review of Systems General: Reports: other (negative unless marked) Const: Denies: fever, chills, body aches, change in appetite, fatigue or malaise ENMT: Denies: throat pain, ear pain, nasal discharge or nasal congestion Card: Denies: chest pain, edema, shortness of breath on exertion or shortness of breath when lying down Resp: Reports: shortness of breath GI: Denies: abdominal pain, nausea, vomiting, vomiting blood, coffee grounds in vomit, diarrhea, constipation, bloating, blood in stool or black tarry stool : Denies: flank pain, painful urination, urinary frequency or urinary urgency Skin/Breast: Denies: rash or itching Neuro: Reports: confusion PFSH ED PFSH: Social History Smoking and tobacco status: former smoker Alcohol intake: never Household members: spouse Physical Exam Const: COMMON NORMALS: no apparent distress GENERAL APPEARANCE: cooperative and comfortable HENMT: COMMON NORMALS: normocephalic, head/scalp atraumatic, hearing grossly normal bilaterally, external ears normal, EAC's normal, TM's normal bilaterally, nasal mucous membranes and turbinates normal, moist oral mucous membranes and oropharynx normal HEAD & SCALP: normocephalic and atraumatic NOSE: nasal mucous membranes and turbinates normal EXTERNAL EAR: Yes external ears normal EXTERNAL AUDITORY CANAL: EAC's normal TYMPANIC MEMBRANE: TM's normal bilaterally Eye: COMMON NORMALS: PERRL, EOMs intact bilaterally, conjunctivae normal and no scleral icterus CONJUNCTIVA: Yes conjunctivae normal PUPIL: Yes PERRL Neck/C-Spine: COMMON NORMALS: full ROM, no lymphadenopathy, supple and no JVD Lymph: LYMPHATIC: no lymphadenopathy noted and no lymphedema noted Resp: COMMON NORMALS: normal respiratory effort, no retractions, no use of accessory muscles and clear to auscultation bilaterally AUSCULTATION: clear to auscultation bilaterally Cardio: COMMON NORMALS: no JVD, regular rate, regular rhythm and no murmurs RATE: regular rate RHYTHM: regular rhythm GI: COMMON NORMALS: soft to palpation and no hepatosplenomegaly AUSCULTATION: Yes normoactive bowel sounds PALPATION: Yes soft, No tender, No guarding and Yes no hepatosplenomegaly Extremity: COMMON NORMALS: normal to inspection, normal capillary refill, no clubbing, cyanosis or edema, no calf tenderness and no pedal edema Skin: COMMON NORMALS: no rashes or lesions noted GENERAL SKIN EXAM: no rashes or lesions noted Course ED course: Patient not a very good historian due to his dementia. He has not been eating or drinking want talk to Dr. Soliman prior to his arriving here. Labs are pending care transferred to Dr. Roldan at change of shift Vital Signs: Vital signs: Vital Signs Temperature 98.4 F 06/04/19 04:00 Pulse Rate 67 06/04/19 04:00 Respiratory Rate 20 H 06/04/19 04:00 Blood Pressure 124/64 06/04/19 04:00 Pulse Oximetry 100 06/04/19 04:00 MDM - General Adult Lab Data: Labs: Lab Results 06/03/19 06/03/19 06/03/19 Range/Units 01:17 17:12 17:44 WBC 6.7 (4.0-10.0) 10^3/ uL RBC 4.50 (4.1-5.3) 10^6/u L Hgb 12.7 (11.7-16.6) g/dL Hct 38.7 L (42.0-52.0) % MCV 86.0 (80-94) fL MCH 28.2 (28.0-34.0) pg MCHC 32.8 (30.0-36.0) g/dL RDW 14.2 (12.1-15.1) % Plt Count 138 (130-400) 10^3/c mm MPV 9.0 (7.4-10.4) fL Neut % (Auto) 66.8 % Lymph % (Auto) 21.5 % Crawford % (Auto) 6.7 % Eos % (Auto) 4.3 % Baso % (Auto) 0.3 % Neut # (Auto) 4.5 (1.8-7.7) 10^3/u L Lymph # (Auto) 1.5 (0.8-4.8) 10^3/u L Crawford # (Auto) 0.5 (0.2-0.9) 10^3/u L Eos # (Auto) 0.3 (0.0-0.8) 10^3/u L Baso # (Auto) 0.0 (0.0-0.1) 10^3/u L Nucleated RBC % (a uto) 0 % Nucleated RBCs # 0.0 /100WBC PT (10.5-13.3) SECO NDS INR (0.8-1.2) APTT (23.9-36.7) SECO NDS Specimen Type Arterial Sample Site Radial, left ABG pH 7.41 (7.35-7.45) ABG pCO2 41.8 (35-45) mmHg ABG pO2 85.2 (80.0-100.0) mmH g ABG HCO3 26.6 H (22-26) mmol/L ABG O2 Saturation 97.6 ABG Base Excess 1.7 (-2.0-2.0) mmol/ L Eduardo Test Pos A-a O2 Gradient 11.9 H (5-10) mmHg Hematocrit 40.1 L (42-52) % Hgb O2 Saturation 96.2 (95-100) % Carboxyhemoglobin 1.2 (0.4-20.1) %THgb Methemoglobin 0.1 L (0.4-1.5) % Total Hemoglobin 13.1 L (14-18) g/dL Sodium 134.0 (131-143) mmol/L Potassium 4.9 (3.5-5.0) mmol/L Glucose 221.0 H (70-115) mg/dL Ionized Calcium 1.3 (1.1-1.4) mmol/L O2 Delivery Device Room air FiO2 21.0 % Hash Slinger ID ed Chloride (98-107) mmol/L Carbon Dioxide (22-29) mmol/L Anion Gap (5-19) BUN (8-23) mg/dL Creatinine (0.7-1.2) mg/dL Calcium (8.5-10.5) mg/dL Total Bilirubin (0.15-1.2) mg/dL AST (0-40) U/L ALT (0-41) U/L Alkaline Phosphata se (40-130) IU/L Troponin T Baselin e (0-15) ng/mL Troponin T 120 Min nenana (0-15) ng/mL Delta Troponin T (0-10) ABS# NT-Pro-B Natriuret Pep (0-450) pg/mL Total Protein (6.6-8.7) g/dL Albumin (3.5-5.2) g/dL Globulin (1.3-4.6) g/dL Lipase (13-60) U/L Digoxin (0.6-1.2) ng/mL Influenza Type A A g Negative (Negative) POC Influenza B Ag Negative (Negative) 06/03/19 06/03/19 06/03/19 Range/Units 17:44 17:44 17:44 WBC (4.0-10.0) 10^3/ uL RBC (4.1-5.3) 10^6/u L Hgb (11.7-16.6) g/dL Hct (42.0-52.0) % MCV (80-94) fL MCH (28.0-34.0) pg MCHC (30.0-36.0) g/dL RDW (12.1-15.1) % Plt Count (130-400) 10^3/c mm MPV (7.4-10.4) fL Neut % (Auto) % Lymph % (Auto) % Crawford % (Auto) % Eos % (Auto) % Baso % (Auto) % Neut # (Auto) (1.8-7.7) 10^3/u L Lymph # (Auto) (0.8-4.8) 10^3/u L Crawford # (Auto) (0.2-0.9) 10^3/u L Eos # (Auto) (0.0-0.8) 10^3/u L Baso # (Auto) (0.0-0.1) 10^3/u L Nucleated RBC % (a uto) % Nucleated RBCs # /100WBC PT 28.60 H (10.5-13.3) SECO NDS INR 2.58 H (0.8-1.2) APTT 42.4 H (23.9-36.7) SECO NDS Specimen Type Sample Site ABG pH (7.35-7.45) ABG pCO2 (35-45) mmHg ABG pO2 (80.0-100.0) mmH g ABG HCO3 (22-26) mmol/L ABG O2 Saturation ABG Base Excess (-2.0-2.0) mmol/ L Eduardo Test A-a O2 Gradient (5-10) mmHg Hematocrit (42-52) % Hgb O2 Saturation (95-100) % Carboxyhemoglobin (0.4-20.1) %THgb Methemoglobin (0.4-1.5) % Total Hemoglobin (14-18) g/dL Sodium 134 L (131-143) mmol/L Potassium 5.6 H (3.5-5.0) mmol/L Glucose 232 H (70-115) mg/dL Ionized Calcium (1.1-1.4) mmol/L O2 Delivery Device FiO2 % Hash Slinger ID Chloride 94 L (98-107) mmol/L Carbon Dioxide 28 (22-29) mmol/L Anion Gap 17.6 (5-19) BUN 48 H (8-23) mg/dL Creatinine 2.4 H (0.7-1.2) mg/dL Calcium 10.6 H (8.5-10.5) mg/dL Total Bilirubin 0.5 (0.15-1.2) mg/dL AST 16 (0-40) U/L ALT 13 (0-41) U/L Alkaline Phosphata se 63 (40-130) IU/L Troponin T Baselin e 97 H (0-15) ng/mL Troponin T 120 Min nenana (0-15) ng/mL Delta Troponin T (0-10) ABS# NT-Pro-B Natriuret Pep 1854 H (0-450) pg/mL Total Protein 7.6 (6.6-8.7) g/dL Albumin 3.8 (3.5-5.2) g/dL Globulin 3.8 (1.3-4.6) g/dL Lipase 44 (13-60) U/L Digoxin 2.8 H* (0.6-1.2) ng/mL Influenza Type A A g (Negative) POC Influenza B Ag (Negative) 06/03/19 Range/Units 19:11 WBC (4.0-10.0) 10^3/ uL RBC (4.1-5.3) 10^6/u L Hgb (11.7-16.6) g/dL Hct (42.0-52.0) % MCV (80-94) fL MCH (28.0-34.0) pg MCHC (30.0-36.0) g/dL RDW (12.1-15.1) % Plt Count (130-400) 10^3/c mm MPV (7.4-10.4) fL Neut % (Auto) % Lymph % (Auto) % Crawford % (Auto) % Eos % (Auto) % Baso % (Auto) % Neut # (Auto) (1.8-7.7) 10^3/u L Lymph # (Auto) (0.8-4.8) 10^3/u L Crawford # (Auto) (0.2-0.9) 10^3/u L Eos # (Auto) (0.0-0.8) 10^3/u L Baso # (Auto) (0.0-0.1) 10^3/u L Nucleated RBC % (a uto) % Nucleated RBCs # /100WBC PT (10.5-13.3) SECO NDS INR (0.8-1.2) APTT (23.9-36.7) SECO NDS Specimen Type Sample Site ABG pH (7.35-7.45) ABG pCO2 (35-45) mmHg ABG pO2 (80.0-100.0) mmH g ABG HCO3 (22-26) mmol/L ABG O2 Saturation ABG Base Excess (-2.0-2.0) mmol/ L Eduardo Test A-a O2 Gradient (5-10) mmHg Hematocrit (42-52) % Hgb O2 Saturation (95-100) % Carboxyhemoglobin (0.4-20.1) %THgb Methemoglobin (0.4-1.5) % Total Hemoglobin (14-18) g/dL Sodium (131-143) mmol/L Potassium (3.5-5.0) mmol/L Glucose (70-115) mg/dL Ionized Calcium (1.1-1.4) mmol/L O2 Delivery Device FiO2 % Hash Slinger ID Chloride (98-107) mmol/L Carbon Dioxide (22-29) mmol/L Anion Gap (5-19) BUN (8-23) mg/dL Creatinine (0.7-1.2) mg/dL Calcium (8.5-10.5) mg/dL Total Bilirubin (0.15-1.2) mg/dL AST (0-40) U/L ALT (0-41) U/L Alkaline Phosphata se (40-130) IU/L Troponin T Baselin e (0-15) ng/mL Troponin T 120 Min nenana 89.71 H (0-15) ng/mL Delta Troponin T -7.29 L (0-10) ABS# NT-Pro-B Natriuret Pep (0-450) pg/mL Total Protein (6.6-8.7) g/dL Albumin (3.5-5.2) g/dL Globulin (1.3-4.6) g/dL Lipase (13-60) U/L Digoxin (0.6-1.2) ng/mL Influenza Type A A g (Negative) POC Influenza B Ag (Negative) Discharge Plan Discharge Patient Disposition: Admitted As Inpatient Admit Provider: Cayetano Cotter Clinical Impression: Acute kidney injury, Acute dehydration, Digitalis toxicity Condition: Stable Referrals: Michael Soliman MD [Primary Care Provider] - Discharge Date/Time: 06/03/19 21:18 Coding Level of Care Code ED Manager Drug for Chg Fwd Exam Comprehensive The documentation recorded by the Gavino ivory Stephanie Lyn, accurately reflects the service I personally performed and the decisions made by Tommie kay Curtis L, DO Jun 03, 2019 16:27
--- NOTE | 2019-06-03 17:03 | XR_ITS ---
WS: [id number] XR chest 1V portable [id number] REASON FOR EXAM: dyspnea/cough FINDINGS: We again note the single electrode pacemaker extending from the left side. The lung aceves are well aerated. There is no infiltrates, pneumonia, pleural effusion, pulmonary kyle ma, or mass effect. The hilum is and apices normal. No osseous abnormalities. XR/XR chest 1V portable [id number] IMPRESSION: Unchanged chest since earlier exam exposed April 07, 2019 There is evidence of arteriosclerotic changes and pacemaker again seen.
--- NOTE | 2019-06-03 17:04 | ECG_ITS ---
Measurements Intervals [place] Rate: 59 P: NM: 0 QRS: -82 QRSD: 175 T: 94 QT: 408 QTc: 407 ELECTRONIC VENTRICULAR PACEMAKER ABNORMAL RHYTHM ECG Compared to ECG 04/06/2019 21:41:00 No significant changes Electronically Signed On 06-04-2019 16:53:46 LINE O SCRIBE OPERATOR by Chencho Chamberlain M.D. [id number] f
[2019-06-03 17:22] LABS: ABG PCO2 41.8 mmHg (35-45); ABG PH Result 7.41 (7.35-7.45); Alveolar-Arterial Oxygen Gradi 11.9 mmHg (5-10); Arterial Blood Gas Hematocrit 40.1 % (42-52); Base Excess ABG 1.7 mmol/L (-2.0-2.0); Blood Gas Allen Test Pos; Blood Gas Sample Site Radial, left; Blood Gas Sample Type Arterial; Carboxyhemoglobin 1.2 %THgb (0.4-20.1); HCO3 ABG 26.6 mmol/L (22-26); HGB O2 Sat 96.2 % (95-100); Ionized Calcium Level - ABG 1.3 mmol/L (1.1-1.4); Methemoglobin 0.1 % (0.4-1.5); Oxygen Device ROOM AIR; Oxygen Saturation ABG 97.6; PO2 ABG 85.2 mmHg (80.0-100.0); Potassium Level - ABG 4.9 mmol/L (3.5-5.0); Total Hemoglobin 13.1 g/dL (14-18)
[2019-06-03 17:58] LABS: Basophils % 0.3 %; Eosinophils # 0.3 10^3/uL (0.0-0.8); Eosinophils % 4.3 %; Hematocrit 38.7 % (42.0-52.0); Hemoglobin 12.7 g/dL (11.7-16.6); Lymphocytes # 1.5 10^3/uL (0.8-4.8); Lymphocytes % 21.5 %; Mean Corpuscular HGB Conc 32.8 g/dL (30.0-36.0); Mean Corpuscular Hemoglobin 28.2 pg (28.0-34.0); Monocytes # 0.5 10^3/uL (0.2-0.9); Monocytes % 6.7 %; Neutrophils # 4.5 10^3/uL (1.8-7.7); Neutrophils % 66.8 %; Nucleated Red Blood Cells % 0 %; Platelet Count 138 10^3/cmm (130-400); Red Cell Distribution Width 14.2 % (12.1-15.1); White Blood Count 6.7 10^3/uL (4.0-10.0)
[2019-06-03 18:07] LABS: INR 2.58 (0.8-1.2)
[2019-06-03 18:08] LABS: Partial Thromboplastin Time 42.4 SECONDS (23.9-36.7)
[2019-06-03 18:17] LABS: Troponin(5th) Baseline 97 ng/mL (0-15)
[2019-06-03 18:27] LABS: Alanine Aminotransferase 13 U/L (0-41); Albumin Level 3.8 g/dL (3.5-5.2); Alkaline Phosphatase 63 IU/L (40-130); Anion Gap 17.6 (5-19); Aspartate Amino Transferase 16 U/L (0-40); Blood Urea Nitrogen 48 mg/dL (8-23); Calcium 10.6 mg/dL (8.5-10.5); Carbon Dioxide 28 mmol/L (22-29); Chloride 94 mmol/L (98-107); Globulin 3.8 g/dL (1.3-4.6); Glucose 232 mg/dL (65-115); Lipase 44 U/L (13-60); NT Pro B Type Natriuretic Pept 1854 pg/mL (0-450); Potassium 5.6 mmol/L (3.5-5.1); Sodium 134 mmol/L (136-145); Total Bilirubin 0.5 mg/dL (0.15-1.2); Total Protein 7.6 g/dL (6.6-8.7)
[2019-06-03 18:31] LABS: Digoxin 2.8 ng/mL (0.6-1.2)
--- NOTE | 2019-06-03 19:04 | ECG_ITS ---
Measurements Intervals [place] Rate: 66 P: [place]: 0 QRS: -29 QRSD: 114 T: 232 QT: 349 QTc: 366 UNCERTAIN IRREGULAR RHYTHM ELECTRONIC VENTRICULAR PACEMAKER -- CONTOUR ANALYSIS BASED ON INTRINSIC RHYTHM BORDERLINE LEFT AXIS DEVIATION [QRS AXIS < -20] ST DEVIATION AND MODERATE T-WAVE ABNORMALITY, CONSIDER ANTEROLATERAL ISCHEMIA [-0.1+ mV T WAVE IN V3-V6] ST DEVIATION AND MODERATE T-WAVE ABNORMALITY, CONSIDER INFERIOR ISCHEMIA [-0.1+ mV T WAVE IN II/aVF] Compared to ECG 04/06/2019 21:41:00 T-wave abnormality now present Possible ischemia now present Electronically Signed On 06-04-2019 17:00:39 SYSTEMS INTEGRATION ANALYST by Chencho Chamberlain M.D. [id number]
[2019-06-03 19:33] LABS: Troponin 5 2HR 89.71 ng/mL (0-15)
[2019-06-03 19:34] LABS: Troponin 5 2HR Delta -7.29 ABS# (0-10)
[2019-06-03] MEDS: sodium chloride 0.9% 1,000 ML 999 ML IV (19:39)
--- NOTE | 2019-06-03 19:39 | P.HP_ITS ---
Providers/Chief Complaint Primary Care Provider: Michael Soliman MD Chief Complaint: abd pain/weak History of Present Illness Ashwin Witt is a 84 year old male who carries diagnosis of congestive heart failure, A. fib, chronic anticoagulation with warfarin, COPD, was brought in by the family for concern of generalized weakness and gradual decline in functional status. is at the bedside who is endorsing that from last admission he was discharged to [facility] facility where he spent 20 to 30 days and then he was discharged to home. He has been at home for 3 weeks, is not able to take care of him, his functional status is declining on daily basis, his p.o. intake has decreased, he has lost 10- 20 pounds, is stating that they have opted for hospice at home, PCP Dr. Soliman has recommended to continue all of the medications including digoxin and Coumadin. seems to be confused about giving him all the medications. Despite doing poor and eating less he has been getting Lasix and digoxin which has dehydrated him otherwise patient is denying chest pain, numbness, tingling, diarrhea, dysuria. He is relying on his for most of the questions I have asked. is stating that he has been having runny nose for quite some time and was suffering from chills at home she did not notice any fever. Patient is denying nausea and vomiting but is endorsing blurry vision. Diagnostics in ER showed hypertension, tachycardia, afebrile, flu was not checked, high digoxin level 2.8, no tachycardia on EKG, INR 2.5 JOAQUIN Patient received 1 L normal saline bolus Review of Systems Const: Reports: chills, body aches, change in appetite, change in weight, fatigue, malaise and daytime sleepiness; Denies: fever Eyes: Reports: blurry vision; Denies: change in vision or photophobia ENMT: Denies: throat pain Card: Denies: chest pain, palpitations, edema or swelling of feet/ankles Resp: Denies: shortness of breath or non-productive cough GI: Denies: abdominal pain, nausea, vomiting, excessive passing of gas or change in bowel habits : Denies: flank pain or urinary frequency Musc: Reports: muscle cramps and muscle weakness Skin/Breast: Denies: rash Neuro: Reports: weakness in extremities; Denies: headache Psych: Denies: anxiety Endo: Denies: excessive urination Daquan/Lymph: Reports: easy bruising All/Imm: Denies: hives Medications/Allergies Home Medications Medication Instructions Recorded Confirmed Last Taken Type ferrous sulfate 325 mg PO DAILY 06/03/19 06/03/19 06/02/19 History furosemide [Lasix] See Rx Instructions .ROUTE .COMPLEX 06/03/19 06/03/19 06/02/19 History insulin detemir U-100 [Levemir 25 unit SUBCUT BID 06/03/19 06/03/19 06/02/19 History FlexTouch U-100 Insuln] metformin 1,000 mg PO DAILY 06/03/19 06/03/19 06/02/19 History spironolactone 25 mg PO DAILY 06/03/19 06/03/19 06/02/19 History warfarin 2 mg PO DAILY 06/03/19 06/03/19 06/02/19 History Allergies Allergy/AdvReac Type Severity Reaction Status Date / Time No Known Allergies Allergy Verified 04/06/19 11:52 PFSH Acute PFSH: Social History Smoking and tobacco status: former smoker Alcohol intake: never Household members: spouse Vitals/I&O/Wt Last Vital Signs Temp 97.8 F 06/03/19 16:31 Resp 16 06/03/19 16:31 BP 105/56 06/03/19 16:31 Pulse Ox 100 06/03/19 16:31 Weight last 48 hrs Weight 85.275 kg Physical Exam Narrative: EXAM NARRATIVE: Dehydrated, frail elderly male sitting comfortable in his bed saturating well on 2 L nasal cannula Alert oriented x3, S1, S2 variable without active signs of heart failure, no JVD or lower extremity edema Abdomen soft, distended, with obesity, bowel sounds present, tinkling bowel sounds Adequate breath sounds without adventitial sounds Skin shows mild petechiae otherwise no active bruising or cyanosis Appropriate mood and affect EOMI Patient has dentures Data : 06/03/19 17:44 06/03/19 17:44 A&P Assessment and plan (1) Acute kidney injury: Status: Acute Code(s): N17.9 - Acute kidney failure, unspecified (2) Acute dehydration: Status: Acute Code(s): E86.0 - Dehydration (3) Digitalis toxicity: Status: Acute Code(s): T46.0X1A - Poisoning by cardiac-stimulant glycosides and drugs of similar action, accidental (unintentional), initial encounter Additional A&P Information Generalized weakness and dehydration secondary to polypharmacy and poor p.o. intake I would hold most of his home medication at the moment because of dehydration, hyperkalemia and high digoxin level Will check flu panel Currently getting 1 L normal saline I will be judicious in use of fluids because of history of heart failure and he required Lasix on previous visit JOAQUIN secondary to dehydration: Anticipating improvement with fluid resuscitation Digoxin toxicity: No supra ventricular tachycardia seen on EKG, patient has blurry vision, no nausea or vomiting positive for weakness Digoxin level 2.8, I would hold off on giving DigiFab at the moment, he is hemodynamically stable Hyperkalemia: Hold lisinopril, I will give him calcium gluconate and Kayexalate Home hospice is confused about giving him all the medications, she is stating that PCP has also recommended to give the medications I believe this needs to be sorted out before this discharge to prevent polypharmacy, side effects She is requesting alf placement as she is not able to take care of him at home Social service consult DNR/DNI DVT prophylaxis: Not needed he is on warfarin, current INR 2.5 Cardiac diet Attestations Medical Necessity Statement*: Anticipating discharge in less than 48 hours after correction of dehydration with full resuscitation he needs placement to a alf which might change his length of stay Time Spent in Patient Care: 40 Coding Level of Care Code Acute Stamping Machine Operator for Saul Barrientos Diagnoses Acute kidney injury N17.9 Acute dehydration E86.0 Digitalis toxicity T46.0X1A
[2019-06-03 19:41] VITALS: BP 151/64; PULSE 102; RESP 20; O2SAT 100
[2019-06-03 21:39] VITALS: BP 152/65; PULSE 70; RESP 20; TEMP 36.4; O2SAT 100
[2019-06-03] MEDS: sodium polystyrene sulfonate 15 gm/60 mL Btl PO (22:33)
--- NOTE | 2019-06-03 23:04 | ECG_ITS ---
Measurements Intervals [place] Rate: 67 P: [place]: 0 QRS: -83 QRSD: 172 T: 103 QT: 408 QTc: 434 ELECTRONIC VENTRICULAR PACEMAKER ABNORMAL RHYTHM ECG Compared to ECG 04/06/2019 21:41:00 No significant changes Electronically Signed On 06-04-2019 17:01:51 BARTENDER by Chencho Chamberlain M.D. [id number]
[2019-06-04] VITALS: BP 136/65; PULSE 84; RESP 22; TEMP 36.5; O2SAT 99
[2019-06-04 00:21] LABS: Troponin 5 6HR 96.16 ng/mL (0-15); Troponin 5 6HR Delta -0.84 ng/L (0-12)
[2019-06-04 01:31] LABS: Glucose Point of Care 128 mg/dL (70-110)
[2019-06-04 01:40] LABS: Influenza A by IFA Negative (Negative); Influenza B by IFA Negative (Negative)
[2019-06-04 04:00] VITALS: BP 124/64; PULSE 67; RESP 20; TEMP 36.9; O2SAT 100
[2019-06-04 05:33] LABS: Anion Gap 15.8 (5-19); Blood Urea Nitrogen 45 mg/dL (8-23); Calcium 9.9 mg/dL (8.5-10.5); Carbon Dioxide 29 mmol/L (22-29); Chloride 99 mmol/L (98-107); Glucose 183 mg/dL (65-115); Osmolality Calculated 291 mOsm/kg (285-295); Potassium 4.8 mmol/L (3.5-5.1); Sodium 139 mmol/L (136-145)
[2019-06-04 06:35] LABS: Glucose Point of Care 182 mg/dL (70-110)
[2019-06-04 07:23] VITALS: BP 155/66; PULSE 62; RESP 20; TEMP 36.8; O2SAT 99
[2019-06-04] MEDS: warfarin 2 mg Tablet PO (08:33)
[2019-06-04] MEDS: carvedilol 12.5 mg Tablet PO ×2 (08:35→17:12)
[2019-06-04] MEDS: famotidine 20 mg Tablet 10 MG PO ×2 (08:35→17:12)
[2019-06-04] MEDS: tamsulosin 0.4 mg Capsule PO (08:35)
[2019-06-04 11:06] LABS: Glucose Point of Care 218 mg/dL (70-110)
[2019-06-04 11:25] VITALS: BP 132/64; PULSE 62; RESP 22; TEMP 36.7; O2SAT 94
[2019-06-04 15:22] VITALS: BP 124/66; PULSE 60; RESP 18; TEMP 36.9; O2SAT 100
[2019-06-04 16:38] LABS: Glucose Point of Care 221 mg/dL (70-110)
--- NOTE | 2019-06-04 16:50 | P.PN_ITS ---
Subjective Subjective: Interval history: This morning patient alert oriented x1, can recognize family members, does not really carry out conversations, can answer some yes or no questions. Most of the history was taken from patient's and son-in-law at bedside. Patient's and family were concerned for dehydration, and overmedication, so they brought patient to the hospital for evaluation. Patient has been in home hospice, they are concerned about all the medications that are taking. Patient's family want him to remain comfortable, do not want aggressive interventions, do not want aggressive test, do not want significant medical therapy, do not want him to take medications if not improving his quality of life. All patient states is that he wants to go home. Vitals/I&O/Wt Last Vital Signs Temp 98.5 F 06/04/19 15:22 Pulse 60 06/04/19 15:22 Resp 18 06/04/19 15:22 BP 124/66 06/04/19 15:22 Pulse Ox 100 06/04/19 15:22 06/04/19 06/04/19 06/04/19 06:59 14:59 22:59 Intake Total 100 / 400 600 / 600 Output Total 800 / 800 Balance 100 / 100 -200 / -200 Weight last 48 hrs Weight 85.275 kg Physical Exam Const: COMMON NORMALS: no apparent distress GENERAL APPEARANCE: cooperative ORIENTATION/CONSCIOUSNESS: Yes awake HENMT: COMMON NORMALS: normocephalic HEAD & SCALP: normocephalic Neck/C-Spine: COMMON NORMALS: no JVD Resp: COMMON NORMALS: normal respiratory effort, no retractions, no use of accessory muscles and clear to auscultation bilaterally AUSCULTATION: clear to auscultation bilaterally Cardio: COMMON NORMALS: no JVD, regular rate, regular rhythm, S1 normal heart sound and S2 normal heart sound RATE: regular rate RHYTHM: regular rhythm HEART SOUNDS: S1 normal and S2 normal GI: COMMON NORMALS: normal to inspection, nondistended, normoactive bowel sounds, soft to palpation, non-tender, no hepatosplenomegaly, no masses and no bruits PALPATION: Yes soft and Yes no hepatosplenomegaly Extremity: COMMON NORMALS: normal capillary refill, no clubbing, cyanosis or edema, no calf tenderness and no pedal edema Data : 06/03/19 17:44 06/04/19 04:52 A&P Assessment and plan (1) Acute kidney injury: Status: Acute Code(s): N17.9 - Acute kidney failure, unspecified (2) Acute dehydration: Status: Acute Code(s): E86.0 - Dehydration (3) Digitalis toxicity: Status: Acute Code(s): T46.0X1A - Poisoning by cardiac-stimulant glycosides and drugs of similar action , accidental (unintentional), initial encounter Additional A&P Information Generalized weakness and dehydration secondary to polypharmacy, progressing dementia, and poor p.o. intake -Patient's family does not want aggressive measures, does not want testing, okay with IV hydration -Patient's family states that his dementia has been worsening, he has poor oral intake, patient's family does not want G-tube placement, I advised patient's family to encourage oral intake as best as they can, however in late dementia it is well known to cause poor oral intake, weight loss, fatigue. Patient's family does not want medical interventions or medications for this. I had an extensive discussion with patient's family at bedside about his goals of care and hospice goals. Patient's family above all else wants him to remain comfortable, want a good quality of life, do want to ease his pain is suffering, they do want extensive medical interventions, do not want extensive medical test, do not want medications that do not improve his quality of life. After discussion risk and benefits, voiced understanding, all questions answered, patient's family want to discontinue the majority of his medications. In discussion about his atrial fibrillation, discontinued Coumadin. Discontinued digoxin. Will reduce Coreg dose as he is bradycardic, high risk of falls on a beta-amy. Patient's family agreeable to discontinue Coumadin, although there is a risk of strokes, there is concerns of repeat blood sticks for INRs, the decreased quality of life with taking the medication, risk of bleeding, worry of rechecking INRs, and diminished quality of life. After dis cussion the risks and benefits, risk of stopping the medication include strokes, [place], significant morbidity and mortality, patient family voiced understanding, all questions answered. Wants to stop medical therapy that does not help his quality of life. In regards to his type 2 diabetes mellitus, I believe giving him insulin is quite reasonable, and continue the Levemir would be reasonable. As patient has had diet dehydration, electrolyte abnormalities, Lasix therapy stopped, spironolactone stopped, Uloric acid stopped. Risks and benefits discussed, all questions answered, voiced understanding, agreeable to stop these medical therapies as the risks outweigh the benefit in him as he is suffering dehydration, and electrolyte abnormalities. JOAQUIN secondary to dehydration: Anticipating improvement with fluid resuscitation Digoxin toxicity: We will stop digoxin, will stop digoxin as above Hyperkalemia: We will stop lisinopril as above Home hospice Patient's wants to take him home with home hospice Social service consult DNR/DNI DVT prophylaxis on hospice Cardiac diet Attestations Medical Necessity Statement*: Patient will go home on hospice after hydration Coding Level of Care Code Acute Certified Rehabilitation Counselor for Saul Barrientos Diagnoses Acute kidney injury N17.9 Acute dehydration E86.0 Digitalis toxicity T46.0X1A
[2019-06-04 20:00] VITALS: BP 162/60; PULSE 67; RESP 17; TEMP 37.2; O2SAT 98
[2019-06-04 20:44] LABS: Glucose Point of Care 234 mg/dL (70-110)
[2019-06-04] MEDS: trazodone 50 mg Tablet PO (21:36)
[2019-06-05] VITALS: BP 130/73; PULSE 61; RESP 17; TEMP 36.3; O2SAT 98
[2019-06-05 04:00] VITALS: BP 151/69; PULSE 67; RESP 17; TEMP 36.7; O2SAT 100
[2019-06-05 07:24] LABS: Glucose Point of Care 144 mg/dL (70-110)
[2019-06-05 08:00] VITALS: BP 136/70; PULSE 62; RESP 18; TEMP 36.7; O2SAT 96
[2019-06-05] MEDS: carvedilol 12.5 mg Tablet PO (09:11)
[2019-06-05] MEDS: famotidine 20 mg Tablet 10 MG PO (09:11)
[2019-06-05] MEDS: tamsulosin 0.4 mg Capsule PO (09:11)
[2019-06-05 11:20] LABS: Glucose Point of Care 300 mg/dL (70-110)
[2019-06-05 11:54] VITALS: BP 121/61; PULSE 93; RESP 16; TEMP 36.4; O2SAT 97
[2019-06-05 12:56] VITALS: BP 121/61; PULSE 93; RESP 16; TEMP 36.4; O2SAT 97
--- NOTE | 2019-06-05 13:10 | PC.CHAP ---
Pastoral Care Encounter/Spiritual Assessment Type of Contact [] Declined cobbler apprentice visit [] Patient/Family/Request visit [] Outpatient visit [] Follow-up visit [] Physician referral [] Code/Alert x] Routine visit [] Staff referral [] Actively dying [] Patient sleeping [] Family support [] [] Out of room [] Palliative care [] [] Receiving care in room [] Pre-surgical visit [] Trauma [] Long length of stay [] ICU visit [] Other: Relational/Emotional Strength [x] Patient feels connected with others/family/visitors/staff [] Distress [] Loneliness/isolation [] Abandonment Spirituality of Patient [x] Person of Miriam [x] Attends Scientology of their Miriam [] Believes in Prayer [] Reads Bible or Restoration materials [] There are Spiritual issues to be addressed Lock Tender Interventions [x] Prayer [x] Active listening [x] Non-anxious presence [] Spiritual/emotional support [] Crisis/trauma care [] Spiritual counseling [] Bereavement support [] Provided bereavement packet [] Provided Bible/devotional materials [] Provided toy/stuffed animal, coloring book to patient or family member [] Provided Communion [] Anointing/[place] [] Salvation [x] Completed spiritual assessment [] Other: Impact on Illness or Injury [] Angry [] Fearful [] Anxious [] Often cries [] Exhaustion [] Unable to work [] Unable to attend anglican [] Unable to walk/stand [] Unable to read [] Unable to drive [] Unable to eat/drink [] Unable to sleep [] Unable to be with family [] Patient intubated [] Other: Summary patiuent feeling better Time spent with patient 10 min
--- NOTE | 2019-06-05 15:35 | PC.NURSE ---
DISCHARGE SUMMARY Patient was given discharge instructions and daughter was there as well. patient was taken home with family. Iv was discontinued and vitals stable. plan is home with hospice.
--- NOTE | 2019-06-05 16:12 | PM.DCS ---
Discharge Providers Date of Admission: 06/05/19 09:14 Date of Discharge: June 05, 2019 Attending Provider at Admission: Cayetano Cotter MD Attending Provider at Discharge: Duncan Law MD Primary Care Provider: Michael Soliman MD Diagnoses at Discharge Discharge Diagnosis (1) Acute kidney injury: Status: Acute (2) Acute dehydration: Status: Acute (3) Digitalis toxicity: Status: Acute Reason for Visit Reason for Visit: Reason For Visit: abd pain/weak Hospital Course Discharge Summary: Ashwin Witt is a 84 year old male who carries diagnosis of congestive heart failure, A. fib, chronic anticoagulation with warfarin, COPD, was brought in by the family for concern of generalized weakness and gradual decline in functional status. is at the bedside who is endorsing that from last admission he was discharged to assisted facility where he spent 20 to 30 days and then he was discharged to home. He has been at home for 3 weeks, is not able to take care of him, his functional status is declining on daily basis, his p.o. intake has decreased, he has lost 10- 20 pounds, is stating that they have opted for hospice at home, PCP Dr. Soliman has recommended to continue all of the medications including digoxin and Coumadin. seems to be confused about giving him all the medications. Despite doing poor and eating less he has been getting Lasix and digoxin which has dehydrated him otherwise patient is denying chest pain, numbness, tingling, diarrhea, dysuria. He is relying on his for most of the questions I have asked. is stating that he has been having runny nose for quite some time and was suffering from chills at home she did not notice any fever. Patient is denying nausea and vomiting but is endorsing blurry vision. Diagnostics in ER showed hypertension, tachycardia, afebrile, flu was not checked, high digoxin level 2.8, no tachycardia on EKG, INR 2.5 JOAQUIN Patient received 1 L normal saline bolus I had a long discussion with patient's family at bedside, patient's , patient son-in-law, patient is on hospice at home, patient's family is concerned about the medications that he is on, they questioned his need for these medications, as he is on hospice, and as he is suffering dehydration and side effects of some of the medications that he is on. a patient that is on hospice was admitted for generalized weakness and dehydration secondary to polypharmacy, progressing dementia, and poor p.o. intake -Patient's family does not want aggressive measures, does not want testing, okay with IV hydration -Patient's family states that his dementia has been worsening, he has poor oral intake, patient's family does not want G-tube placement, I advised patient's family to encourage oral intake as best as they can, however in late dementia it is well known to cause poor oral intake, weight loss, fatigue. Patient's family does not want medical interventions or medications for this. I had an extensive discussion with patient's family at bedside about his goals of care and hospice goals. Patient's family above all else wants him to remain comfortable, want a good quality of life, do want to ease his pain is suffering, they do want extensive medical interventions, do not want extensive medical test, do not want medications that do not improve his quality of life. After discussion risk and benefits, voiced understanding, all questions answered, patient's family want to discontinue the majority of his medications. In discussion about his atrial fibrillation, discontinued Coumadin. Discontinued digoxin. Will reduce Coreg dose as he is bradycardic, high risk of falls on a beta-amy. Patient's family agreeable to discontinue Coumadin, although there is a risk of strokes, there is concerns of repeat blood sticks for INRs, the decreased quality of life with taking the medication, risk of bleeding, worry of rechecking INRs, and diminished quality of life. After discussion the risks and benefits, risk of stopping the medication include strokes, [place], significant morbidity and mortality, patient family voiced understanding, all questions answered. Wants to stop medical therapy that does not help his quality of life. In regards to his type 2 diabetes mellitus, I believe giving him insulin is quite reasonable, and continue the Levemir at a reduced dose would be reasonable. As patient has had dehydration, electrolyte abnormalities, Lasix therapy stopped, spironolactone stopped, Uloric acid stopped. Risks and benefits discussed, all questions answered, voiced understanding, agreeable to stop these medical therapies as the risks outweigh the benefit in him as he is suffering dehydration, and electrolyte abnormalities. Patient was discharged on minimized medical therapy, I will leave it up to patient's outpatient physician to discontinue famotidine, ferrous sulfate, metformin, nirostat which are unlikely to provide any clinically significant in a patient with severe dementia and poor functional status and on hospice. Patient's family voiced understanding, all questions answered, agreed to proceed with these medications, and consideration of stopping them in the near future if deemed prudent. I am gpoing to continue trazodone 50 mg at bedtime as patient's family feels that it helps with his sleep. Physical Exam Const: COMMON NORMALS: no apparent distress GENERAL APPEARANCE: cooperative ORIENTATION/CONSCIOUSNESS: Yes awake HENMT: COMMON NORMALS: normocephalic HEAD & SCALP: normocephalic Neck/C-Spine: COMMON NORMALS: no JVD Resp: COMMON NORMALS: normal respiratory effort, no retractions, no use of accessory muscles and clear to auscultation bilaterally AUSCULTATION: clear to auscultation bilaterally Cardio: COMMON NORMALS: no JVD, regular rate, regular rhythm, S1 normal heart sound and S2 normal heart sound RATE: regular rate RHYTHM: regular rhythm HEART SOUNDS: S1 normal and S2 normal GI: COMMON NORMALS: normal to inspection, nondistended, normoactive bowel sounds, soft to palpation, non-tender, no hepatosplenomegaly, no masses and no bruits PALPATION: Yes soft and Yes no hepatosplenomegaly Extremity: COMMON NORMALS: normal capillary refill, no clubbing, cyanosis or edema, no calf tenderness and no pedal edema Discharge Data Data Completed and Pending: Completed Studies During Hospitalization Category Date Time Status XR chest 1V [place] ble [id number] Stat Exams 06/03/19 17:03 Completed Labs from last 24 hours 06/05/19 06/05/19 06/04/19 11:08 06:35 20:40 POC Glucose 300 144 234 06/04/19 16:32 POC Glucose 221 Vitals: Last Vital Signs Temp 97.5 F L 06/05/19 12:56 Pulse 93 06/05/19 12:56 Resp 16 06/05/19 12:56 BP 121/61 06/05/19 12:56 Pulse Ox 97 06/05/19 12:56 Discharge Plan Discharge Patient Disposition: Hospice - Home Condition: Stable Prescriptions: Continued carvedilol 25 mg Tablet 12.5 mg PO BID RF: 0 famotidine 10 mg Tablet 10 mg PO BID RF: 0 trazodone 50 mg Tablet 50 mg PO BEDTIME RF: 0 tamsulosin [Flomax] 0.4 mg Capsule 0.4 mg PO DAILY Qty: 0 RF: 0 insulin aspart U-100 [Novolog PenFill U-100 Insulin] 100 unit/mL Cartridge See Rx Instructions .ROUTE .COMPLEX RF: 0 Multiple Vitamins Tablet 1 tab PO DAILY 30 Days Qty: 30 RF: 0 ferrous sulfate 325 mg (65 mg iron) Tablet 325 mg PO DAILY 30 Days Qty: 30 RF: 0 metformin 1,000 mg Tablet 1,000 mg PO DAILY 30 Days Qty: 30 RF: 0 Nitrostat 0.4 mg Tablet, Sublingual 0.4 mg SUBLINGUAL Q5M PRN (Reason: Chest Pain) 5 Days Qty: 5 RF: 0 Changed Levemir FlexTouch U-100 Insuln 100 unit/mL (3 mL) Insulin Pen 15 unit SUBCUT BID 30 Days Qty: 9 RF: 0 Discontinued trandolapril 4 mg Tablet 4 mg PO DAILY RF: 0 digoxin 125 mcg (0.125 mg) Tablet 125 mcg PO DAILY RF: 0 febuxostat [Uloric] 40 mg Tablet 40 mg PO DAILY RF: 0 spironolactone 25 mg Tablet 25 mg PO DAILY RF: 0 furosemide [Lasix] 80 mg Tablet See Rx Instructions .ROUTE .COMPLEX RF: 0 warfarin 2 mg Tablet 2 mg PO DAILY RF: 0 Discharge Orders: Discharge Order (Routine); Ordered 06/05/19 Ordered By: Duncan Law Referrals: [facility] [Outside] Michael Soliman MD [Primary Care Provider] - 06/09/19 2:15 pm Discharge Diet: Regular Discharge Activity: Resume usual activity Activity Restrictions/Additional Instructions: -Discharge with home hospice Discharge Attestations Time Spent in Discharge Care*: less than 30 min Quality Metrics Clinical Quality Measures During this hospital stay, did patient experience: None Coding Level of Care Code Acute Supervisor Gas Meter Repair for Saul Fwd Diagnoses Acute kidney injury N17.9 Acute dehydration E86.0 Digitalis toxicity T46.0X1A
== END 2019-06-05 12:00 | disposition hospice, home (50) | DRG 683 ==
LOC: ER 19:40 → MEDSURG 06-04 07:59
PROVIDERS: Family Medicine; Admitting Provider Internal Medicine; Emergency Provider Emergency Medicine; Family Provider Family Medicine; PCP Family Medicine; Visit Provider Family Medicine
DX: N17.9 Acute kidney failure, unspecified (principal); I48.20 Chronic atrial fibrillation, unspecified; E86.0 Dehydration; Z79.01 Long term (current) use of anticoagulants; J44.9 Chronic obstructive pulmonary disease, unspecified; I50.9 Heart failure, unspecified; F03.90 Unspecified dementia, unspecified severity, without behavioral disturbance, psychotic disturbance, mood disturbance, and anxiety; Z66 Do not resuscitate; Z51.5 Encounter for palliative care; E87.5 Hyperkalemia; E11.9 Type 2 diabetes mellitus without complications; Z79.4 Long term (current) use of insulin; Z87.891 Personal history of nicotine dependence; T46.0X1A Poisoning by cardiac-stimulant glycosides and drugs of similar action, accidental (unintentional), initial encounter; Y92.009 Unspecified place in unspecified non-institutional (private) residence as the place of occurrence of the external cause
CPT/HCPCS: 12345; 36415; 36416; 36600; 71045; 80048; 80051; 80053; 80162; 82810; 82962; 83690; 83880; 83986; 84484; 85025; 85610; 85730; 87804; 93005; 96372; 99282; G0378; J0610; J1815; J7030

== ENCOUNTER 2019-06-23 16:02 | Emergency (ER) | payer OTHER, SELFPAY ==
[2019-06-23 16:07] VITALS: BP 132/62; PULSE 84; RESP 18; TEMP 36.4; O2SAT 96; BMI 29.5
--- NOTE | 2019-06-23 16:08 | XR_ITS ---
WS: [id number] CHEST XRAY TECHNIQUE: Portable chest. CLINICAL INFORMATION: cough COMPARISON: June 03, 2019 FINDINGS: Heart: Cardiomegaly. Single lead cardiac pacer. Lungs: Chronic emphysematous changes. No acute pulmonary infiltrates. No focal pneumonia. Bones: Normal visualized bony structures. XR/XR chest 1V portable [id number] IMPRESSION: 1. Cardiomegaly. 2. Chronic emphysematous changes. No acute pulmonary infiltrates.
--- NOTE | 2019-06-23 16:09 | ECG_ITS ---
Measurements Intervals [place] Rate: 90 P: PA: 0 QRS: -30 QRSD: 96 T: 60 QT: 345 QTc: 423 ATRIAL FIBRILLATION BORDERLINE LEFT AXIS DEVIATION [QRS AXIS < -20] INCOMPLETE RIGHT BUNDLE BRANCH BLOCK [90+ ms QRS DURATION, TERMINAL R IN V1/V2, 40+ ms S IN I/aVL/V4/V5/V6] MINIMAL ST DEPRESSION [0.025+ mV ST DEPRESSION] ABNORMAL RHYTHM ECG INTERPRETATION BASED ON A DEFAULT AGE OF 40 YEARS Compared to ECG 06/04/2019 00:34:15 Incomplete right bundle-branch block now present ST (T wave) deviation now present Ventricular-paced complex(es) or rhythm no longer present Electronically Signed On 06-23-2019 20:18:34 CDT by Cayetano Strickland M.D. [id number]
--- NOTE | 2019-06-23 16:19 | ED_ITS ---
Entered by Haylee Condon, acting as scribe for Kristyn Pimentel HPI - General Adult General: Chief complaint: General Medical Stated complaint: POOR INTAKE, WEAKNESS, FALLS Time Seen by Provider: 06/23/19 16:08 Source: family and RN notes reviewed Mode of arrival: EMS Limitations: altered mental status (chronic dementia) History of Present Illness: HPI narrative: 84 yo male presents to ED with complaints of weakness for 2 days. The spouse gives the history, since the patient has chronic dementia. She states the patient fell 2 times last night due to his weakness. She said he has not been eating, drinking or speaking as he normally does. MD complaint: weakness Onset (ago): day(s) (2) Location: abdomen Radiation: non-radiation Severity: moderate Quality: constant Relieving factors: none Exacerbating factors: none Associated symptoms: Reports confusion (chronic dementia), decreased appetite and weakness; Deny chest pain, diaphoresis, dyspnea, nausea, rash, palpitations, syncope or vomiting Treatments prior to arrival: none Review of Systems General: Reports: ROS unobtainable due to mental status Const: Denies: fever, chills, body aches, fatigue or diaphoresis Eyes: Denies: change in vision or blurry vision ENMT: Denies: throat pain, painful swallowing, hoarseness, ear pain, ear discharge, Change in hearing or nasal discharge Card: Denies: chest pain, palpitations, irregular heart rhythm, syncope, pre- syncope, shortness of breath on exertion or shortness of breath when lying down Resp: Denies: shortness of breath, productive cough, non-productive cough, wheezing, coughing up blood or chest congestion GI: Denies: abdominal pain, nausea, vomiting, vomiting blood, coffee grounds in vomit, diarrhea, constipation, cramping, blood in stool or black tarry stool : Denies: flank pain, difficulty urinating, painful urination, urinary frequency, urinary urgency, decreased urine ouput, urinary incontinence or blood in urine Musc: Denies: neck pain, back pain, extremity pain, extremity swelling, joint pain, joint swelling, joint warmth or joint stiffness Skin/Breast: Denies: rash, skin tenderness or yellow skin Neuro: Reports: confusion (chronic dementia) Endo: Denies: excessive thirst, tired all the time, cold intolerance, excessive sweating, flushing or hot flashes Daquan/Lymph: Denies: easy bruising, easy bleeding, petechiae or enlarged lymph nodes All/Imm: Denies: hives, throat swelling, tongue swelling, facial swelling or acute wheezing PFSH ED PFSH: Social History Smoking and tobacco status: former smoker Alcohol intake: never Household members: spouse Course Vital Signs: Vital signs: Vital Signs Temperature 97.6 F 06/23/19 16:07 Pulse Rate 81 06/23/19 18:58 Respiratory Rate 15 06/23/19 18:58 Blood Pressure 147/80 06/23/19 18:58 Pulse Oximetry 93 06/23/19 18:58 MDM - General Adult MDM Narrative: Medical decision making narrative: Mr. Wang is a nice 84-year-old male brought in by his with a concern of dehydration. He is not wanting to eat or drink much in the past 3 days. His creatinine is at its norm and his ketones are negative in his urine. He is received 2 L of IV normal saline and he is urinated several times now. His is reassured. He is not orthostatic. They want to go home. I reviewed the case with Dr. Soliman and he is agreeable to this plan. Further care will be dictated by him on outpatient setting. The family and the patient understand they can return here if his symptoms change or worsen. Lab Data: Attestation: I reviewed the patient's lab results. Labs: Lab Results 06/22/19 06/23/19 06/23/19 Range/Units 17:34 16:19 16:34 WBC 7.9 (4.0-10.0) 10^3/ uL RBC 3.71 L (4.1-5.3) 10^6/u L Hgb 10.2 L (11.7-16.6) g/dL Hct 32.5 L (42.0-52.0) % MCV 87.6 (80-94) fL MCH 27.5 L (28.0-34.0) pg MCHC 31.4 (30.0-36.0) g/dL RDW 13.7 (12.1-15.1) % Plt Count 224 (130-400) 10^3/c mm MPV 9.0 (7.4-10.4) fL Neut % (Auto) 71.5 % Lymph % (Auto) 14.1 % [place] % (Auto) 5.2 % Eos % (Auto) 8.3 % Baso % (Auto) 0.5 % Neut # (Auto) 5.6 (1.8-7.7) 10^3/u L Lymph # (Auto) 1.1 (0.8-4.8) 10^3/u L [place] # (Auto) 0.4 (0.2-0.9) 10^3/u L Eos # (Auto) 0.7 (0.0-0.8) 10^3/u L Baso # (Auto) 0.0 (0.0-0.1) 10^3/u L Nucleated RBC % (a uto) 0 % Nucleated RBCs # 0.0 /100WBC PT (10.5-13.3) SECO NDS INR (0.8-1.2) Sodium (136-145) mmol/L Potassium (3.5-5.1) mmol/L Chloride (98-107) mmol/L Carbon Dioxide (22-29) mmol/L Anion Gap (5-19) BUN (8-23) mg/dL Creatinine (0.7-1.2) mg/dL Glucose (65-115) mg/dL Calculated Osmolal ity (285-295) mOsm/k g Lactic Acid (0.5-2.2) mmol/L Lactic Acid (Sepsi s) (0.5-2.2) mmol/L Calcium (8.5-10.5) mg/dL Magnesium (1.7-2.3) mg/dL Total Bilirubin (0.15-1.2) mg/dL AST (0-40) U/L ALT (0-41) U/L Alkaline Phosphata se (40-130) IU/L Troponin T Baselin e (0-15) ng/mL Troponin T 120 Min cachil dehe (0-15) ng/mL Delta Troponin T (0-10) ABS# Total Protein (6.6-8.7) g/dL Albumin (3.5-5.2) g/dL Globulin (1.3-4.6) g/dL Lipase (13-60) U/L Urine Color Yellow (Yellow) Urine Appearance Clear (CLEAR) Urine pH 5 (5-7) Ur Specific Gravit y 1.015 (1.005-1.030) Urine Protein Neg (Negative) Urine Glucose (UA) Norm (Normal) Urine Ketones Negative (Negative) Urine Blood Neg (Negative) Urine Nitrate Negative (Negative) Urine Bilirubin Neg (NEGATIVE) Urine Urobilinogen Norm (Negative) mg/dL Ur Leukocyte Shelley ase Negative (Negative) Urine RBC None (0-2) /hpf Urine WBC None (0-5) /hpf Ur Squamous Epith Cells 0-4 H (0-5) Urine Bacteria Trace (NONE) Serum Ketones (Negative) Influenza Type A A g Negative (Negative) POC Influenza B Ag Negative (Negative) 06/23/19 06/23/19 06/23/19 Range/Units 16:34 16:34 16:34 WBC (4.0-10.0) 10^3/ uL RBC (4.1-5.3) 10^6/u L Hgb (11.7-16.6) g/dL Hct (42.0-52.0) % MCV (80-94) fL MCH (28.0-34.0) pg MCHC (30.0-36.0) g/dL RDW (12.1-15.1) % Plt Count (130-400) 10^3/c mm MPV (7.4-10.4) fL Neut % (Auto) % Lymph % (Auto) % [place] % (Auto) % Eos % (Auto) % Baso % (Auto) % Neut # (Auto) (1.8-7.7) 10^3/u L Lymph # (Auto) (0.8-4.8) 10^3/u L [place] # (Auto) (0.2-0.9) 10^3/u L Eos # (Auto) (0.0-0.8) 10^3/u L Baso # (Auto) (0.0-0.1) 10^3/u L Nucleated RBC % (a uto) % Nucleated RBCs # /100WBC PT 15.60 H (10.5-13.3) SECO NDS INR 1.24 H (0.8-1.2) Sodium 136 (136-145) mmol/L Potassium 4.0 (3.5-5.1) mmol/L Chloride 95 L (98-107) mmol/L Carbon Dioxide 29 (22-29) mmol/L Anion Gap 16.0 (5-19) BUN 18 (8-23) mg/dL Creatinine 1.7 H (0.7-1.2) mg/dL Glucose 184 H (65-115) mg/dL Calculated Osmolal ity 283 L (285-295) mOsm/k g Lactic Acid 2.7 H (0.5-2.2) mmol/L Lactic Acid (Sepsi s) (0.5-2.2) mmol/L Calcium 9.8 (8.5-10.5) mg/dL Magnesium 2.2 (1.7-2.3) mg/dL Total Bilirubin 0.8 (0.15-1.2) mg/dL AST 11 (0-40) U/L ALT 9 (0-41) U/L Alkaline Phosphata se 77 (40-130) IU/L Troponin T Baselin e (0-15) ng/mL Troponin T 120 Min cachil dehe (0-15) ng/mL Delta Troponin T (0-10) ABS# Total Protein 7.3 (6.6-8.7) g/dL Albumin 3.2 L (3.5-5.2) g/dL Globulin 4.1 (1.3-4.6) g/dL Lipase 14 (13-60) U/L Urine Color (Yellow) Urine Appearance (CLEAR) Urine pH (5-7) Ur Specific Gravit y (1.005-1.030) Urine Protein (Negative) Urine Glucose (UA) (Normal) Urine Ketones (Negative) Urine Blood (Negative) Urine Nitrate (Negative) Urine Bilirubin (NEGATIVE) Urine Urobilinogen (Negative) mg/dL Ur Leukocyte Shelley ase (Negative) Urine RBC (0-2) /hpf Urine WBC (0-5) /hpf Ur Squamous Epith Cells (0-5) Urine Bacteria (NONE) Serum Ketones (Negative) Influenza Type A A g (Negative) POC Influenza B Ag (Negative) 06/23/19 06/23/19 06/23/19 Range/Units 16:34 16:34 18:07 WBC (4.0-10.0) 10^3/ uL RBC (4.1-5.3) 10^6/u L Hgb (11.7-16.6) g/dL Hct (42.0-52.0) % MCV (80-94) fL MCH (28.0-34.0) pg MCHC (30.0-36.0) g/dL RDW (12.1-15.1) % Plt Count (130-400) 10^3/c mm MPV (7.4-10.4) fL Neut % (Auto) % Lymph % (Auto) % [place] % (Auto) % Eos % (Auto) % Baso % (Auto) % Neut # (Auto) (1.8-7.7) 10^3/u L Lymph # (Auto) (0.8-4.8) 10^3/u L [place] # (Auto) (0.2-0.9) 10^3/u L Eos # (Auto) (0.0-0.8) 10^3/u L Baso # (Auto) (0.0-0.1) 10^3/u L Nucleated RBC % (a uto) % Nucleated RBCs # /100WBC PT (10.5-13.3) SECO NDS INR (0.8-1.2) Sodium (136-145) mmol/L Potassium (3.5-5.1) mmol/L Chloride (98-107) mmol/L Carbon Dioxide (22-29) mmol/L Anion Gap (5-19) BUN (8-23) mg/dL Creatinine (0.7-1.2) mg/dL Glucose (65-115) mg/dL Calculated Osmolal ity (285-295) mOsm/k g Lactic Acid (0.5-2.2) mmol/L Lactic Acid (Sepsi s) (0.5-2.2) mmol/L Calcium (8.5-10.5) mg/dL Magnesium (1.7-2.3) mg/dL Total Bilirubin (0.15-1.2) mg/dL AST (0-40) U/L ALT (0-41) U/L Alkaline Phosphata se (40-130) IU/L Troponin T Baselin e 79 H (0-15) ng/mL Troponin T 120 Min cachil dehe 75.50 H (0-15) ng/mL Delta Troponin T -3.50 L (0-10) ABS# Total Protein (6.6-8.7) g/dL Albumin (3.5-5.2) g/dL Globulin (1.3-4.6) g/dL Lipase (13-60) U/L Urine Color (Yellow) Urine Appearance (CLEAR) Urine pH (5-7) Ur Specific Gravit y (1.005-1.030) Urine Protein (Negative) Urine Glucose (UA) (Normal) Urine Ketones (Negative) Urine Blood (Negative) Urine Nitrate (Negative) Urine Bilirubin (NEGATIVE) Urine Urobilinogen (Negative) mg/dL Ur Leukocyte Shelley ase (Negative) Urine RBC (0-2) /hpf Urine WBC (0-5) /hpf Ur Squamous Epith Cells (0-5) Urine Bacteria (NONE) Serum Ketones Negative (Negative) Influenza Type A A g (Negative) POC Influenza B Ag (Negative) 06/23/19 Range/Units 19:03 WBC (4.0-10.0) 10^3/ uL RBC (4.1-5.3) 10^6/u L Hgb (11.7-16.6) g/dL Hct (42.0-52.0) % MCV (80-94) fL MCH (28.0-34.0) pg MCHC (30.0-36.0) g/dL RDW (12.1-15.1) % Plt Count (130-400) 10^3/c mm MPV (7.4-10.4) fL Neut % (Auto) % Lymph % (Auto) % [place] % (Auto) % Eos % (Auto) % Baso % (Auto) % Neut # (Auto) (1.8-7.7) 10^3/u L Lymph # (Auto) (0.8-4.8) 10^3/u L [place] # (Auto) (0.2-0.9) 10^3/u L Eos # (Auto) (0.0-0.8) 10^3/u L Baso # (Auto) (0.0-0.1) 10^3/u L Nucleated RBC % (a uto) % Nucleated RBCs # /100WBC PT (10.5-13.3) SECO NDS INR (0.8-1.2) Sodium (136-145) mmol/L Potassium (3.5-5.1) mmol/L Chloride (98-107) mmol/L Carbon Dioxide (22-29) mmol/L Anion Gap (5-19) BUN (8-23) mg/dL Creatinine (0.7-1.2) mg/dL Glucose (65-115) mg/dL Calculated Osmolal ity (285-295) mOsm/k g Lactic Acid (0.5-2.2) mmol/L Lactic Acid (Sepsi s) 1.5 (0.5-2.2) mmol/L Calcium (8.5-10.5) mg/dL Magnesium (1.7-2.3) mg/dL Total Bilirubin (0.15-1.2) mg/dL AST (0-40) U/L ALT (0-41) U/L Alkaline Phosphata se (40-130) IU/L Troponin T Baselin e (0-15) ng/mL Troponin T 120 Min cachil dehe (0-15) ng/mL Delta Troponin T (0-10) ABS# Total Protein (6.6-8.7) g/dL Albumin (3.5-5.2) g/dL Globulin (1.3-4.6) g/dL Lipase (13-60) U/L Urine Color (Yellow) Urine Appearance (CLEAR) Urine pH (5-7) Ur Specific Gravit y (1.005-1.030) Urine Protein (Negative) Urine Glucose (UA) (Normal) Urine Ketones (Negative) Urine Blood (Negative) Urine Nitrate (Negative) Urine Bilirubin (NEGATIVE) Urine Urobilinogen (Negative) mg/dL Ur Leukocyte Shelley ase (Negative) Urine RBC (0-2) /hpf Urine WBC (0-5) /hpf Ur Squamous Epith Cells (0-5) Urine Bacteria (NONE) Serum Ketones (Negative) Influenza Type A A g (Negative) POC Influenza B Ag (Negative) Imaging Data^: CXR: Radiologist's impression: [address] [address] XRay Report Signed Patient: Ashwin Witt Unit #: [id number] : 1935 Age/Sex: 84 / M ADM Date: 0 06/23/19 Loc: ER Room/Bed: Attending Dr: Ordering Provider/Ordering MD: Kristyn Pimentel DO Date of Service: 06/23/19 Procedure(s): XR chest 1V portable 83467 Accession Number(s): [id number] Report Number: [id number] WS: [id number] CHEST XRAY TECHNIQUE: Portable chest. CLINICAL INFORMATION: cough COMPARISON: June 03, 2019 FINDINGS: Heart: Cardiomegaly. Single lead cardiac pacer. Lungs: Chronic emphysematous changes. No acute pulmonary infiltrates. No focal pneumonia. Bones: Normal visualized bony structures. XR/XR chest 1V portable [id number] IMPRESSION: 1. Cardiomegaly. 2. Chronic emphysematous changes. No acute pulmonary infiltrates. Dictated By: Cezar Canchola MD Signed By: Cezar Canchola MD Signed Date/Time: 06/23/191643 DD/ 42 EKG Data^: EKG 1: Attestation: I personally reviewed and interpreted this EKG as follows: EKG interpretation date: 06/23/19 EKG interpretation time: 16:23 Interpretation: Atrial fibrillation with a ventricular rate of 90 beats a minute, incomplete right bundle branch block, intermittently paced beats. PVC. Computer generated interpretation: Chest X-Ray 06/23/19 16:08 IMPRESSION: 1. Cardiomegaly. 2. Chronic emphysematous changes. No acute pulmonary infiltrates. Discharge Plan Discharge Patient Disposition: Home, Self-Care Clinical Impression: Generalized weakness Condition: Stable Prescriptions: No Action trazodone 50 mg Tablet 50 mg PO BEDTIME RF: 0 tamsulosin [Flomax] 0.4 mg Capsule 0.4 mg PO DAILY Qty: 0 RF: 0 insulin aspart U-100 [Novolog PenFill U-100 Insulin] 100 unit/mL Cartridge See Rx Instructions .ROUTE .COMPLEX RF: 0 multivitamin [Multiple Vitamins] Tablet 1 tab PO DAILY 30 Days Qty: 30 RF: 0 nitroglycerin [Nitrostat] 0.4 mg Tablet, Sublingual 0.4 mg SUBLINGUAL Q5M PRN (Reason: Chest Pain) 5 Days Qty: 5 RF: 0 Levemir FlexTouch U-100 Insuln 100 unit/mL (3 mL) Insulin Pen 15 unit SUBCUT BID 30 Days Qty: 9 RF: 0 furosemide 40 mg Tablet 40 mg PO DAILY RF: 0 pantoprazole 40 mg Tablet,Delayed Release (Dr/Ec) 40 mg PO DAILY RF: 0 Discharge Orders: Discharge Order (Routine); Ordered 06/23/19 Ordered By: Kristyn Pimentel Referrals: Michael Soliman MD [Primary Care Provider] - 1-3 days Discharge Diet: Advance as tolerated Discharge Activity: Increase activity as tolerated Patient Instructions: Weakness (Generalized) Activity Restrictions/Additional Instructions: Please return to the ER immediately for any of the signs or symptoms listed on your discharge instruction sheets, worsening/changing of your symptoms, you are not getting better as quickly as expected, or for ANY other cause or concerns. Coding Level of Care Code ED [employer] Manager for Chg Fwd The documentation recorded by the Taurus ivory Valerie R, accurately reflects the service I personally performed and the decisions made by Loren kay Eli N Jun 23, 2019 16:02
[2019-06-23 16:36] VITALS: BP 0/0; BP 129/78; BP 134/79; PULSE 101; PULSE 103; PULSE 106
[2019-06-23 16:44] LABS: Basophils % 0.5 %; Eosinophils # 0.7 10^3/uL (0.0-0.8); Eosinophils % 8.3 %; Hematocrit 32.5 % (42.0-52.0); Hemoglobin 10.2 g/dL (11.7-16.6); Lymphocytes # 1.1 10^3/uL (0.8-4.8); Lymphocytes % 14.1 %; Mean Corpuscular HGB Conc 31.4 g/dL (30.0-36.0); Mean Corpuscular Hemoglobin 27.5 pg (28.0-34.0); Mean Corpuscular Volume 87.6 fL (80-94); Monocytes # 0.4 10^3/uL (0.2-0.9); Monocytes % 5.2 %; Neutrophils # 5.6 10^3/uL (1.8-7.7); Neutrophils % 71.5 %; Nucleated Red Blood Cells % 0 %; Platelet Count 224 10^3/cmm (130-400); Red Blood Count 3.71 10^6/uL (4.1-5.3); Red Cell Distribution Width 13.7 % (12.1-15.1); White Blood Count 7.9 10^3/uL (4.0-10.0)
[2019-06-23 16:50] LABS: Influenza A by IFA Negative (Negative); Influenza B by IFA Negative (Negative)
[2019-06-23 16:52] LABS: Ketone (Acetest) Serum Negative (Negative)
[2019-06-23 16:58] LABS: Lactic Sepsis W/Reflex 2.7 mmol/L (0.5-2.2)
[2019-06-23 16:59] LABS: Alanine Aminotransferase 9 U/L (0-41); Albumin Level 3.2 g/dL (3.5-5.2); Alkaline Phosphatase 77 IU/L (40-130); Aspartate Amino Transferase 11 U/L (0-40); Blood Urea Nitrogen 18 mg/dL (8-23); Calcium 9.8 mg/dL (8.5-10.5); Carbon Dioxide 29 mmol/L (22-29); Chloride 95 mmol/L (98-107); Globulin 4.1 g/dL (1.3-4.6); Glucose 184 mg/dL (65-115); Lipase 14 U/L (13-60); Magnesium 2.2 mg/dL (1.7-2.3); Osmolality Calculated 283 mOsm/kg (285-295); Sodium 136 mmol/L (136-145); Total Bilirubin 0.8 mg/dL (0.15-1.2); Total Protein 7.3 g/dL (6.6-8.7)
[2019-06-23 17:02] LABS: Troponin(5th) Baseline 79 ng/mL (0-15)
[2019-06-23 17:19] LABS: INR 1.24 (0.8-1.2)
[2019-06-23] MEDS: sodium chloride 0.9% 1,000 ML 999 ML IV (17:39)
[2019-06-23 18:01] VITALS: BP 147/80; PULSE 75; RESP 18; O2SAT 97
--- NOTE | 2019-06-23 18:09 | ECG_ITS ---
Measurements Intervals Hunter Rate: 97 P: MD: 0 QRS: -37 QRSD: 90 T: -14 QT: 344 QTc: 437 ATRIAL FIBRILLATION LEFT AXIS DEVIATION [QRS AXIS < -30] POSSIBLE RIGHT VENTRICULAR CONDUCTION DELAY [RSR (QR) IN V1/V2] MODERATE ST DEPRESSION [0.05+ mV ST DEPRESSION] INTERPRETATION BASED ON A DEFAULT AGE OF 40 YEARS Compared to ECG 06/04/2019 00:34:15 Left-axis deviation now present ST (T wave) deviation now present Ventricular-paced complex(es) or rhythm no longer present Electronically Signed On 06-23-2019 20:20:32 CDT by Cayetano Strickland M.D. [email or web address]
[2019-06-23 18:10] LABS: Urine Appearance Clear (CLEAR); Urine Color Yellow (Yellow)
[2019-06-23 18:11] LABS: Bilirubin Urine Neg (NEGATIVE); Blood Urine Neg (Negative); Glucose Urine UA Norm (Normal); Ketones Urine Negative (Negative); Leukocyte Esterase Urine Negative (Negative); Nitrate Urine Negative (Negative); Protein Urine Neg (Negative); Specific Gravity, Urine 1.015 (1.005-1.030); Urobilinogen Urine Norm (Negative); pH Urine 5 (5-7)
[2019-06-23 18:16] LABS: Add Urine Culture? No; Bacteria Urine TRACE; Squamous Epithelial Cell Urine 0-4 (0-5)
[2019-06-23 18:25] LABS: Reflex Lactate Order REFLEX LACTIC ORDERD
[2019-06-23 18:58] VITALS: BP 147/80; PULSE 81; RESP 15; O2SAT 93
[2019-06-23 19:28] LABS: Lactic Acid level (Lactate) 1.5 mmol/L (0.5-2.2)
[2019-06-23 19:52] VITALS: BP 144/65; PULSE 94; RESP 20; O2SAT 100
== END 2019-06-23 19:52 | disposition home or self-care (01) ==
PROVIDERS: Emergency Provider Emergency Medicine; Family Provider Family Medicine; PCP Family Medicine
DX: R53.1 Weakness (principal); Z87.891 Personal history of nicotine dependence
CPT/HCPCS: 12345; 36415; 71045; 80053; 81001; 82009; 83605; 83690; 83735; 84484; 85025; 85610; 87804; 93005; 96360; 99283; 99284; J7030